=== PATIENT | female | born 1960 | race Hispanic/Latino ===

== ENCOUNTER 2018-05-19 18:56 | Observation (INO) | payer BC, SELFPAY ==
[2018-05-19 19:23] LABS: #Basophils 0.1 thou/uL (0.0-0.2); #Eosinphils 0.1 thou/uL (0.0-0.7); #Lymphocytes 2.1 thou/uL (1.20-3.40); #Monocytes 0.7 thou/uL (0.11-0.59); #Neutrophils 5.5 thou/uL (1.40-6.50); %Basophils 1.1 % (0.0-1.0); %Eosinophils 1.4 % (0.0-10.0); %Lymphocytes 24.6 % (21.0-51.0); %Monocytes 7.9 % (0.0-10.0); Hemoglobin 16.2 g/dL (12.0-16.0); Mean Corpuscular HGB CONC 33.7 g/dL (32.0-36.0); Mean Corpuscular Hemoglobin 31.1 pg (27.0-31.0); Mean Corpuscular Volume 92.4 fL (78.0-98.0); Mean Platelet Volume 9.2 fL (7.4-10.4); Platelet Count 251 thou/uL (130-400); RBC Distribution Width 11.8 % (11.5-14.5); Red Blood Cell (RBC) Count 5.21 mill/uL (4.20-5.40); White Blood Cell (WBC) Count 8.5 thou/uL (4.8-10.8)
[2018-05-19] MEDS ORDERED: Mag-Al 1200 mg/1200 mg/30 ML UDCUP ONE (19:32)
[2018-05-19] MEDS ORDERED: Lidocaine Viscous Sol 2% 15 ml UD Cup ONE (19:32)
[2018-05-19 19:37] LABS: ALT (SGPT) 21 U/L (8-55); AST (SGOT) 23 U/L (5-34); Albumin 4.7 g/dL (3.5-5.0); Alkaline Phosphatase 131 U/L (40-150); Anion Gap 14 mmol/L (10-20); BUN (Urea Nitrogen) 19 mg/dL (9.8-20.1); Bilirubin, Total 0.3 mg/dL (0.2-1.2); CK (CPK) 422 U/L (29-168); Calc. Creatinine Clearance 0 mL/min (70-130); Calcium 10.1 mg/dL (7.8-10.44); Carbon Dioxide 32 mmol/L (22-29); Chloride 95 mmol/L (98-107); Estimated GFR-MDRD 39; Glucose 382 mg/dL (70-105); Protein, Total 8.7 g/dL (6.0-8.3); Sodium 137 mmol/L (136-145)
[2018-05-19 19:41] LABS: Troponin I Less than 0.010 ng/mL (< 0.028)
[2018-05-19 19:52] LABS: CKMB 7.2 ng/mL (0-6.6)
--- NOTE | 2018-05-19 20:56 | RAD ---
PORTABLE CHEST: HISTORY: Chest pain. COMPARISON: 01/16/2017 FINDINGS: Heart size appears borderline in size, considering the portable technique. Postop sternotomy changes are present. There are atherosclerotic changes of the aorta. The lungs are clear of infiltrate. IMPRESSION: No active intrathoracic disease. POS: [facility]
[2018-05-19] MEDS ORDERED: Nitroglycerin 0.4 MG TAB (25 Tab Bottle) ONE (22:05)
--- NOTE | 2018-05-19 22:23 | PDOC.FPRHP ---
- History of Present Illness Chief Complaint: Abdominal burning History of Present Illness: Ms. Ramirez presents with CC of burning lower abdominal pain as well as epigastric burning that began around 1800 this evening after eating turkey jerky. History is difficult to obtain. She denies chest pain, SOB, N/V, diarrhea , rash. GI cocktail did not help much. Denies hx of acid reflux. Sensation different than the pain she had with her CABG. "Burning" still continues. ED Course: GI cocktail, nitro, ASA - Allergies/Adverse Reactions Allergies Allergy/AdvReac Type Severity Reaction Status Date / Time niacin Allergy Hives Verified 05/20/18 02:07 - Home Medications Medication Instructions Recorded Confirmed Type Aspirin 325 mg PO DAILY #0 tab 04/15/14 05/20/18 Rx Carvedilol [Coreg] 3.125 mg PO BID-WM #0 tab 04/15/14 05/20/18 Rx Levothyroxine Sodium 125 mcg PO DAILY #0 tablet 04/15/14 05/20/18 Rx Atorvastatin Calcium [Lipitor] 80 mg PO HS #0 tab 01/13/15 05/20/18 Rx Insulin Glargine,Hum.Rec.Anlog 16 units SQ QAM 09/05/16 05/20/18 History [Tokey Solostadam] Lisinopril [Zestril] 20 mg PO DAILY 09/05/16 05/20/18 History metFORMIN HCl 1,000 mg PO BID-WM 09/05/16 05/20/18 History pyridOXINE [Vitamin B 6] 100 mg PO DAILY 09/05/16 05/20/18 History - History PMHx: Afib s/p ablation, IDDM2, CKD2, CAD, HTN, hypothyroid, HFpEF PSHx: CABG, ablation for afib FHx: Dad- heart trouble, alcoholic Social: Reports some tobacco use in past, unable to state when she started or stopped or how much she smoked. Says she will "have a puff" every now and then while with smokers. Denies alcohol or drug use. - Review of Systems General: denies: fever/chills ENT: denies: nasal congestion, rhinorrhea Respiratory: denies: cough, congestion, shortness of breath Cardiovascular: denies: chest pain, palpitation, edema Gastrointestinal: reports: other (abdominal burning). denies: nausea, vomiting , diarrhea, abdominal pain Skin: reports: lesions (scabs on LLE). denies: rashes Musculoskeletal: denies: pain, swelling Neurological: denies: numbness, syncope - Vital signs BP: 150/90 HR: 64 RR: 15 Tmax: 97.5 Pox: 95% on RA Wt: 90.7 kg - Physical Exam Constitutional: NAD, awake, alert and oriented HEENT: normocephalic and atraumatic, PERRLA, normal nasal mucosa, oropharynx clear -HEENT: mucus membranes slightly dry -Chest: mild sternal TTP Heart: RRR, normal S1/S2, no murmurs/rubs/gallops, no edema Lungs: CTAB, no rales/rhonchi, no wheezing Abdomen: soft, non-tender, bowel sounds present, other Musculoskeletal: normal structure, normal tone Neurological: no focal deficit Skin: other (2 small healing scabs on LLE anteriorly. No abdominal rash.) Heme/Lymphatic: no unusual bruising or bleeding Psychiatric: normal mood and affect FMR H&P: Results - Labs Result Diagrams: 05/19/18 19:13 05/20/18 06:34 Lab results: WBC 8.5 thou/uL (4.8-10.8) 05/19/18 19:13 Hgb 16.2 g/dL (12.0-16.0) H 05/19/18 19:13 Hct 48.1 % (36.0-47.0) H 05/19/18 19:13 MCV 92.4 fL (78.0-98.0) 05/19/18 19:13 Plt Count 251 thou/uL (130-400) 05/19/18 19:13 Neutrophils % 65.0 % (42.0-75.0) 05/19/18 19:13 Sodium 137 mmol/L (136-145) 05/19/18 19:13 Potassium 4.0 mmol/L (3.5-5.1) 05/19/18 19:13 Chloride 95 mmol/L (98-107) L 05/19/18 19:13 Carbon Dioxide 32 mmol/L (22-29) H 05/19/18 19:13 BUN 19 mg/dL (9.8-20.1) 12/03/18 19:13 Creatinine 1.39 mg/dL (0.6-1.1) H 05/19/18 19:13 Glucose 382 mg/dL (70-105) H 05/19/18 19:13 Calcium 10.1 mg/dL (7.8-10.44) 05/19/18 19:13 Total Bilirubin 0.3 mg/dL (0.2-1.2) 05/19/18 19:13 AST 23 U/L (5-34) 05/19/18 19:13 ALT 21 U/L (8-55) 05/19/18 19:13 Alkaline Phosphatase 131 U/L (40-150) 05/19/18 19:13 Creatine Kinase 422 U/L (29-168) H 05/19/18 19:13 CK-MB (CK-2) 7.2 ng/mL (0-6.6) H* 05/19/18 19:13 Serum Total Protein 8.7 g/dL (6.0-8.3) H 05/19/18 19:13 Albumin 4.7 g/dL (3.5-5.0) 05/19/18 19:13 Lipase 34 U/L (8-78) 05/19/18 19:13 FMR H&P: A/P - Problem List (1) Atypical chest pain Current Visit: Yes Status: Acute Code(s): R07.89 - OTHER CHEST PAIN (2) DONY (acute kidney injury) Current Visit: Yes Status: Acute Code(s): N17.9 - ACUTE KIDNEY FAILURE, UNSPECIFIED (3) CKD (chronic kidney disease) Current Visit: Yes Status: Chronic Code(s): N18.9 - CHRONIC KIDNEY DISEASE, UNSPECIFIED (4) IDDM (insulin dependent diabetes mellitus) Current Visit: Yes Status: Acute Code(s): E11.9 - TYPE 2 DIABETES MELLITUS WITHOUT COMPLICATIONS; Z79.4 - DOUBLE END TRIMMER (CURRENT) USE OF INSULIN (5) CAD (coronary artery disease) Current Visit: Yes Status: Chronic Code(s): I25.10 - ATHSCL HEART DISEASE OF [place] CORONARY ARTERY W/O ANG PCTRS (6) Hx of CABG Current Visit: Yes Status: Chronic (7) Diastolic dysfunction Current Visit: Yes Status: Chronic Code(s): I51.9 - HEART DISEASE, UNSPECIFIED (8) Hyperlipemia Current Visit: No Status: Chronic Code(s): E78.5 - HYPERLIPIDEMIA, UNSPECIFIED (9) Hypertension Current Visit: No Status: Chronic Code(s): I10 - ESSENTIAL (PRIMARY) HYPERTENSION (10) Hypothyroidism Current Visit: No Status: Chronic Code(s): E03.9 - HYPOTHYROIDISM, UNSPECIFIED (11) S/P CABG x 4 Current Visit: No Status: Chronic (12) S/P ablation of atrial fibrillation Current Visit: No Status: Chronic Code(s): Z98.89 - OTHER SPECIFIED POSTPROCEDURAL STATES * DO NOT USE *; Z86.79 - PERSONAL HISTORY OF OTHER DISEASES OF THE CIRCULATORY SYSTEM - Plan 58 yo F with PMH CAD, CABG, HTN, IDDM2 presents with epigastric/abdominal burning and is admitted for observation. Atypical chest pain vs GERD vs gastritis - Heart score 4 with hx CAD w/ CABG - trop neg x2, will trend one more - CKMB 7.2->6.3. More likely 2/2 dehydration as below - CXR negative for acute process - EKG shows some t wave inversions, but unchanged compared to previous - lipase 34 - will start protonix - pending FLP, TSH - stress test in am DONY on CKD 2-3 2/2 dehydration - Cr 1.39 with GFR 39 here - patient does not report hx of kidney disease. However on chart review GFR has ranged 50-70s. - will give 500mL bolus. Volume repletion with caution since hx diastolic dysfunction IDDM2 - Pt unsure of how much insulin she takes - BG 382 on admission - will hold home metformin since DONY - accuchecks and SSI for now - A1c pending - will need med rec, she notes her regimen has changed recently HTN - continue home lisinopril - hold home carvedilol in preparation for stress in am CAD s/p CABG - continue home lipitor, ASA HFpEF - echo 09/11/16 showed EF 55-60%, grade 3/3 diastolic dysfunction, bi atrial enlargement - appears volume down at this time Possible hx Hypothyroid - Synthroid on previous med list. Patient did not report thyroid problem. - TSH pending - will get recent med rec Hx afib s/p ablation Diet: NPO @ midnight Code: FULL Dispo: Admit to telemetry for observation. Pending normal stress test in am, likely d/c home. FMR H&P: Upper Level - Pertinent history 58 y/o F w/ PMHx significant for CAD s/p CABG, HTN, and poorly controlled DM presents for evaluation of lower/chest epigastric abdominal burning pain which started earlier tonight while eating dinner (jerky) at home. Episodes intermittent lasting a few minutes at a time before spontaneously resolving. Notes pain is not assocaited w/ SOB, nausea, or diaphoresis. Reports pain is completely different than the cardiac pain she has had previously before her CABG. Given GI cocktail in ER which helped some. No worsening/improvement w/ exertion or rest. - Pertinent findings Trop - <0.01 CK-MB - 7.2 CK - 422 BUN - 19 Cr - 1.39 GFR - 39 EKG - T-wave inversions V4-V6 stable from 09/05/[address]-segment changes noted. NSR. CXR - NAD GEN: Resting in bed comfortably, NAD CARD: RRR, no mumur noted. Pain reproducible w/ palpation PULM: CTA-B/l, no wheezes, rales, or rhonci GI: Soft, non-ttp, BSx4. No rigidity, no rebound tenderness. Skin: No rashes noted on abdomen. - Plan Date/Time: 05/19/182221 I, B. Gage Perkins MD, have evaluated this patient and agree with findings/plan as outlined by media intern resident. Pertinent changes/additions are listed here. 58 y/o F w/: 1) Atypical Chest Pain (HEART Score = 4) vs Gastritis - Pt w/ significant cardiac hx concerning for possible atypical chest pain presentation in this older female patient. Initial cardiac work-up negative w/ exception of slightly elevated CK-MB which is likely related to elevated CK at 422 with approx. 5-7% of CK-MB being found in skeletal muscle. In the setting of baseline EKG and negative troponin, the rise in CK-MB is likely from underlying skeletal muscle injury. Will give small IVF bolus and continue to trend CK-MB and troponins. Patient w/ onset of sxs at 1830 and initial set of enzymes drawn at 1913. If this is cardiac in nature, would expect trops to show elevation within 2-3 hours of sxs onset. - Pt has not had any type of cardiac work-up since her CABG. Will plan to perform NM stress in the AM 2/2 significant risk factors if trops remain negative. - Check TSH, FLP, and A1c. Appears patient has uncontrolled DM as well and unsure of insulin regimen. Will place on moderate SSI w/ accuchecks to control until medication reconcilation can be performed. - Cont. w/ ASA started in the ER. Hold any beta blockers in the AM pending stress. Pt sees Dr. Alvarenga of cardiology and will plan to consult if indicated based on continued cardiac work-up - However, sxs more consistent with gastritis based on her symptomatology and grossly negative work-up so far - Will check lipase to r/o early pancreatitis and start on protonix - Other DDx include possible diabetic gastroparesis as well in setting of uncontrolled DM. Will consider trial of reglan as well if patient does not show any improvement w/ protonix. 2) Moderate dehydration w/ elevated CK and DONY on CKD3 - Pt w/ elevated CK and what appears to be DONY on CKD3 based on prior lab values. Will give 500 cc bolus of LR and repeat labs in the AM - Patient likely volume down 2/2 elevated BG and increased urinary lossses as patient does not know what her insulin regimen is. I doubt she is able to take this effectively at home on her own. If she does not already have home health, I believe that she would benefit form this to hopefully help prevent future hospitalizations. Will go ahead and place CM consult to get this started for her. 3) Other Chronic Conditions as per media intern note above Admit: Tele/Obs Code Status: Full Code PPx: SCD's Dispo: Likely <2 midnights pending clinical course Assessment and Plan discussed w/ Dr. Tremayne Delaney who is in agreement. Attending Addendum - Attending Addendum Date/Time: 05/20/18 [id number] I personally evaluated the patient and discussed the management with Drs. Linn and Maddie. I agree with the History, Examination, Assessment and Plan documented above with any addition or exceptions noted below.
[2018-05-19 23:18] LABS: Troponin I 0.012 ng/mL (< 0.028)
[2018-05-20 00:37] LABS: CKMB 6.3 ng/mL (0-6.6)
[2018-05-20] MEDS ORDERED: HumaLOG 300 UNITS/3 ML VIAL SC PRN (01:48)
[2018-05-20] MEDS ORDERED: Ondansetron ODT 4 MG TAB PO PRN (01:48)
[2018-05-20] MEDS ORDERED: Dextrose 5% in Water 1,000 ML IV PRN (01:48)
[2018-05-20] MEDS ORDERED: Nitroglycerin 0.4 MG TAB (25 Tab Bottle) PO PRN (01:48)
[2018-05-20] MEDS ORDERED: Dextrose 50% Abboject 50 ML SYRINGE SLOW IVP PRN (01:48)
[2018-05-20] MEDS ORDERED: Lactated Ringer's 500 ML IV SCH (01:48)
[2018-05-20] MEDS ORDERED: Acetaminophen 325 MG TAB PO PRN (01:48)
[2018-05-20 01:53] VITALS: BMI 40.6
[2018-05-20 02:34] LABS: CKMB 4.9 ng/mL (0-6.6); Troponin I Less than 0.010 ng/mL (< 0.028)
[2018-05-20] MEDS: Levothyroxine Sodium 125 MCG TAB PO SCH (06:00)
--- NOTE | 2018-05-20 06:30 | PDOC.FM ---
- Subjective Subjective: Pt states that the burning abdominal pain is resolved. She denies current chest pain, sob, or nausea/vomiting. She states that she has not taken her thyroid medication in a while due to insurance. She also states she is unsure her current medications. She reports [facility] on is her pharmacy. Pt states she has not seen Dr. Cannon in a while because no one had information on her insurance status. - Objective MAR Reviewed: Yes Vital Signs & Weight: Weight Weight 94.393 kg I&O: 05/18/18 05/19/18 05/20/18 06:59 06:59 06:59 Intake Total 610 Balance 610 Result Diagrams: 05/19/18 19:13 05/21/18 03:32 Phys Exam - Physical Examination Constitutional: NAD dry mucus membranes Neck: supple Good air movement, mild crackles at bilateral bases. Cardiovascular: RRR, no significant murmur Gastrointestinal: soft, non-tender, no distention, positive bowel sounds Musculoskeletal: no edema, pulses present Neurological: non-focal, moves all 4 limbs Psychiatric: normal affect, A&O x 3 Deviation from normal: Pt appears to have poor health literacy, will need lanny education Deviation from normal: appears to have old fungal rash on her abdomen, it is nontender -: No signs of vesicular lesions across abdomen. Dx/Plan (1) Acute kidney injury superimposed on CKD Code(s): N17.9 - ACUTE KIDNEY FAILURE, UNSPECIFIED; N18.9 - CHRONIC KIDNEY DISEASE, UNSPECIFIED Status: Acute (2) Heart failure with preserved ejection fraction Code(s): I50.30 - UNSPECIFIED DIASTOLIC (CONGESTIVE) HEART FAILURE Status: Acute (3) CAD (coronary artery disease) Code(s): I25.10 - ATHSCL HEART DISEASE OF [place] CORONARY ARTERY W/O ANG PCTRS Status: Chronic (4) Hx of CABG Status: Chronic (5) Hyperlipemia Code(s): E78.5 - HYPERLIPIDEMIA, UNSPECIFIED Status: Chronic (6) Hypertension Code(s): I10 - ESSENTIAL (PRIMARY) HYPERTENSION Status: Chronic (7) Type 2 diabetes mellitus, uncontrolled Code(s): E11.65 - TYPE 2 DIABETES MELLITUS WITH HYPERGLYCEMIA Status: Acute - Plan Plan: This is a 58 yo female with a PMH of CAD, CABG, HTN, IDDM2 Atypical chest pain vs. GERD -Heart score of 4 with hx of CAD w/CABG -Troponins neg x3 -CKMB 7.2--> trending down -CXR negative for acute process -EKG shows some t wave inversions, unchanged from previous -Pt. is receiving protonix -Stress is scheduled for this morning DONY on CKD 2/2 dehydration -Trending Cr -Baseline GFR appears in the 70s over the past 2-3 years Uncontrolled type diabetes -BG 382 on admission -A1c is 11 -Accuchecks and SSI HTN -Continue lisinopril -Hold home carvedilol in preparation for stress in am CAD s/p CABG -Continue home lipitor, ASA HFpEF -Echo in 09/11/16 showed EF of 55-60%, grade 3 diastolic dysfunction Hypothyroidism -TSH is 55.7 Afib s/p ablation HLD -Continue home Lipitor Health Illiteracy -Pt needs to follow up with either Dr. Cannon or us to establish care and begin proper medical management of her current conditions
[2018-05-20 07:29] LABS: Anion Gap 12 mmol/L (10-20); BUN (Urea Nitrogen) 21 mg/dL (9.8-20.1); CK (CPK) 253 U/L (29-168); Calc. Creatinine Clearance 90 mL/min (70-130); Calcium 9.2 mg/dL (7.8-10.44); Carbon Dioxide 29 mmol/L (22-29); Cardiac Risk 8.2 (Less than 4.5); Chloride 100 mmol/L (98-107); Cholesterol 371 mg/dl (< 200 Desired); Estimated GFR-MDRD 56; Glucose 267 mg/dL (70-105); HDL Cholesterol 45 mg/dL (>60 Neg Risk); LDL Cholesterol, Calculated 273 mg/dL; Potassium 3.9 mmol/L (3.5-5.1); Sodium 137 mmol/L (136-145); Triglycerides 264 mg/dL (Less than 150)
[2018-05-20 07:31] LABS: CKMB 4.2 ng/mL (0-6.6)
[2018-05-20] MEDS: metFORMIN 500 MG TAB PO SCH ×2 (08:00→16:55)
[2018-05-20] MEDS ORDERED: INSULIN GLARGINE HUM REC ANLOG 16 UNIT SQ SCH (09:00)
[2018-05-20] MEDS: Lisinopril 20 MG TAB PO SCH (09:03)
[2018-05-20] MEDS: Aspirin 325 MG TAB PO SCH (09:03)
[2018-05-20] MEDS: Pantoprazole 40 MG GRANULES PACKET PO SCH (09:03)
[2018-05-20] MEDS ORDERED: ADENOSINE 60 MG/20 ML VIAL ONE (11:01)
[2018-05-20] MEDS: Insulin Glargine 16 UNITS in Pre-Filled Syringe 1 EACH SC SCH (16:55)
[2018-05-20] MEDS ORDERED: Atorvastatin Calcium 40 MG TAB PO SCH (21:00)
[2018-05-21 04:26] LABS: Anion Gap 12 mmol/L (10-20); BUN (Urea Nitrogen) 24 mg/dL (9.8-20.1); Calc. Creatinine Clearance 90 mL/min (70-130); Calcium 9.4 mg/dL (7.8-10.44); Carbon Dioxide 27 mmol/L (22-29); Chloride 101 mmol/L (98-107); Estimated GFR-MDRD 56; Glucose 190 mg/dL (70-105); Potassium 3.8 mmol/L (3.5-5.1); Sodium 136 mmol/L (136-145)
[2018-05-21] MEDS: Levothyroxine Sodium 125 MCG TAB PO SCH (04:54)
--- NOTE | 2018-05-21 05:30 | PDOC.FM ---
- Subjective Subjective: Pt. denies abdominal burning, chest pain, shortness of breath, dizziness, or lightheadedness with ambulation. She states she did well overnight. - Objective MAR Reviewed: Yes Vital Signs & Weight: Vital Signs (12 hours) Temp Pulse Resp BP Pulse Ox 05/21/18 04:49 97.5 F L 59 L 14 118/56 L 97 05/20/18 23:20 97.6 F 60 12 112/58 L 95 05/20/18 19:55 97.1 F L 59 L 18 140/73 93 L Weight Admit Weight 94.393 kg Weight 95.663 kg I&O: 05/19/18 05/20/18 05/21/18 06:59 06:59 06:59 Intake Total 610 1440 Balance 610 1440 Result Diagrams: 05/19/18 19:13 05/21/18 03:32 <José Pritchard - Last Filed: 05/21/18 06:55> - Objective Vital Signs & Weight: Vital Signs (12 hours) Temp Pulse Resp BP Pulse Ox 05/21/18 04:49 97.5 F L 59 L 14 118/56 L 97 05/20/18 23:20 97.6 F 60 12 112/58 L 95 Weight Admit Weight 94.393 kg Weight 95.663 kg I&O: 05/20/18 05/21/18 05/22/18 06:59 06:59 06:59 Intake Total 610 1440 Balance 610 1440 Result Diagrams: 05/19/18 19:13 05/21/18 03:32 <Cory Bird - Last Filed: 05/21/18 09:36> Phys Exam - Physical Examination Constitutional: NAD HEENT: moist MMs Neck: supple Respiratory: no wheezing, clear to auscultation bilateral Cardiovascular: RRR, no significant murmur, no rub Gastrointestinal: soft, non-tender, no distention, positive bowel sounds Musculoskeletal: no edema, pulses present Neurological: moves all 4 limbs Psychiatric: normal affect, A&O x 3 Skin: cap refill <2 seconds <José Pritchard - Last Filed: 05/21/18 06:55> Dx/Plan (1) Acute kidney injury superimposed on CKD Code(s): N17.9 - ACUTE KIDNEY FAILURE, UNSPECIFIED; N18.9 - CHRONIC KIDNEY DISEASE, UNSPECIFIED Status: Acute (2) Heart failure with preserved ejection fraction Code(s): I50.30 - UNSPECIFIED DIASTOLIC (CONGESTIVE) HEART FAILURE Status: Acute (3) CAD (coronary artery disease) Code(s): I25.10 - ATHSCL HEART DISEASE OF [place] CORONARY ARTERY W/O ANG PCTRS Status: Chronic (4) Hx of CABG Status: Chronic (5) Hyperlipemia Code(s): E78.5 - HYPERLIPIDEMIA, UNSPECIFIED Status: Chronic (6) Hypertension Code(s): I10 - ESSENTIAL (PRIMARY) HYPERTENSION Status: Chronic (7) Type 2 diabetes mellitus, uncontrolled Code(s): E11.65 - TYPE 2 DIABETES MELLITUS WITH HYPERGLYCEMIA Status: Acute - Plan Plan: This is a 58 yo female with a PMH of CAD, CABG, HTN, IDDM2 Atypical chest pain vs. GERD -Heart score of 4 with hx of CAD w/CABG -Troponins neg x3 -CKMB 7.2--> trending down -CXR negative for acute process -EKG shows some t wave inversions, unchanged from previous -Pt. is receiving protonix -Pt underwent active portion of stress test yesterday and will be undergoing resting portion today -We will adjust our management of pt based on the results of this test DONY on CKD 2/2 dehydration -Trending Cr -Baseline GFR appears in the 70s over the past 2-3 years Uncontrolled type diabetes -BG 382 on admission -A1c is 11 -Accuchecks and SSI HTN -Continue lisinopril -Hold home carvedilol in preparation for stress in am CAD s/p CABG -Continue home lipitor, ASA HFpEF -Echo in 09/11/16 showed EF of 55-60%, grade 3 diastolic dysfunction Hypothyroidism -TSH is 55.7 Afib s/p ablation HLD -Continue home Lipitor Health Illiteracy -Pt needs to follow up with either Dr. Cannon or us to establish care and begin proper medical management of her current conditions <José Pritchard - Last Filed: 05/21/18 06:55> Attending Addendum - Attending Addendum Date/Time: 05/21/18 2086 I personally evaluated the patient and discussed the management with Dr. Pritchard I agree with the History, Examination, Assessment and Plan documented above with any addition or exceptions noted below. Pt has not had any episodes of CP since admission. She will complete the second portion of her stress test this morning. Likely discharge pending normal results. We will f/u her up in our clinic for chronic disease management as she has not been taking the appropriate medications for her medical conditions. Extensive counseling done in regards to detention consequences of uncontrolled IDDM, HTN, HLD. <Cory Bird - Last Filed: 05/21/18 09:36>
[2018-05-21] MEDS: Aspirin 325 MG TAB PO SCH (09:13)
[2018-05-21] MEDS: metFORMIN 500 MG TAB PO SCH (09:13)
[2018-05-21] MEDS: Insulin Glargine 16 UNITS in Pre-Filled Syringe 1 EACH SC SCH (09:14)
[2018-05-21] MEDS: Pantoprazole 40 MG GRANULES PACKET PO SCH (09:14)
[2018-05-21] MEDS: Lisinopril 20 MG TAB PO SCH (09:14)
--- NOTE | 2018-05-21 09:48 | NM ---
NUCLEAR MEDICINE CARDIAC PERFUSION STUDY WITH EJECTION FRACTION: History: 58-year-old female with chest pain. History of coronary artery disease, status post CABG. Technique: A two-day Nuclear Medicine cardiac perfusion examination was performed. Rest images were obtained usi ng 33 mCi Technetium 99M Sestamibi. Stress images were obtained using 33 mCi Technetium 99M Sestamibi and Adenosine. FINDINGS: Tomographic images show no fixed or reversible perfusion defects. Gated images show normal wall motio n with an ejection fraction of 51%. EDV is 87 ml. LHR is 0.4. TID is 1.3. IMPRESSION: No evidence of ischemia. POS: [facility]
[2018-05-21 11:52] VITALS: BP 136/73; TEMP 97.8
--- NOTE | 2018-05-23 15:57 | DIS ---
DATE OF ADMISSION: 05/20/2018 DATE OF DISCHARGE: 05/21/2018 RESIDENT: José Pritchard DO. ADMITTING ATTENDING: Tremayne Delaney MD. DISCHARGE ATTENDING: Cory Bird MD. CONSULTS: None. PROCEDURES PERFORMED: 1. Chest x-ray, 1-view, showing no intrathoracic disease. 2. Nuclear medicine stress test shows no evidence of ischemia. PRIMARY DIAGNOSES: Atypical chest pain, likely due to gastritis versus gastroesophageal reflux disease, as well acute kidney injury on chronic kidney disease, stage 2 to 3. SECONDARY DIAGNOSES: 1. Type 2 diabetes. 2. . 3. Coronary artery disease, status post coronary artery bypass grafting. 4. Heart failure with preserved ejection fraction, . 5. History of hypothyroidism. 6. Atrial fibrillation, status post ablation. DISCHARGE MEDICATIONS: 1. Aspirin 325 mg p.o. daily. 2. Atorvastatin 80 mg p.o. nightly. 3. Carvedilol 3.125 mg p.o. b.i.d. 4. Insulin 16 units q.a.m. 5. Levothyroxine 125 mcg p.o. daily. 6. Lisinopril 20 p.o. daily. 7. Metformin 1000 mg p.o. b.i.d. 8. 100 mg p.o. daily. DISCONTINUED MEDICATIONS: None. BRIEF HISTORY OF PRESENT ILLNESS/HOSPITAL COURSE: This is a 58-year-old female with past medical history as listed above, who presented with chief complaint of burning in her abdomen as well as epigastric burning prior to admission. The patient's history is limited due to the patient's . The patient was admitted. Troponins were negative x3. Chest x-ray as above. EKG showed some T-wave inversion, but unchanged compared to previous. The patient had stress test showing no reversible or fixed defects and diagnosis musculoskeletal versus gastrointestinal at that point. DISPOSITION: Stable. DISCHARGE INSTRUCTIONS: 1. Location: Home. 2. Diet: Heart healthy and diabetic. 3. Activities: As tolerated. 4. Followup: Follow up with primary care physician in 1 week. Job ID: [id number]
--- NOTE | 2018-05-24 12:46 | EKG ---
Test Reason : ER INDICATION Blood Pressure : / mmHG Vent. Rate : 070 BPM Atrial Rate : 070 BPM P-R Int : 120 ms QRS Dur : 094 ms QT Int : 390 ms P-R-T Axes : 039 007 150 degrees QTc Int : 421 ms Normal sinus rhythm Lateral T wave inversions seen on EKG from 09/05/2016, no acute changes Confirmed by RADHA HOFFMAN ([id number]), news copy editor AVNI PUENTE ([id number]) on 05/24/2018 12:45:47 PM Referred By: Confirmed By:RADHA HOFFMAN
== END 2018-05-21 13:40 | disposition home or self-care (01) ==
LOC: ERS 18:56 → 2SW 05-20 01:28
PROVIDERS: ADMIT Family Medicine; ATTEND Family Medicine
DX: R07.89 Other chest pain (principal); I13.0 Hypertensive heart and chronic kidney disease with heart failure and stage 1 through stage 4 chronic kidney disease, or unspecified chronic kidney disease; E11.22 Type 2 diabetes mellitus with diabetic chronic kidney disease; N18.3 Chronic kidney disease, stage 3 (moderate); I50.30 Unspecified diastolic (congestive) heart failure; N17.9 Acute kidney failure, unspecified; E03.9 Hypothyroidism, unspecified; I25.10 Atherosclerotic heart disease of native coronary artery without angina pectoris; I48.91 Unspecified atrial fibrillation; F17.200 Nicotine dependence, unspecified, uncomplicated; E86.0 Dehydration; Z79.82 Long term (current) use of aspirin; Z79.4 Long term (current) use of insulin; Z79.899 Other long term (current) drug therapy; Z88.8 Allergy status to other drugs, medicaments and biological substances; Z95.1 Presence of aortocoronary bypass graft
CPT/HCPCS: 36415; 36416; 71045; 78452; 80048; 80053; 80061; 82550; 82553; 83036; 83690; 84443; 84484; 85025; 93005; 93017; A4353; A9500; G0378; J0153; J7120

== ENCOUNTER 2018-08-08 17:39 | Emergency (ER) | payer SELFPAY ==
--- NOTE | 2018-08-08 19:12 | RAD ---
THREE VIEWS RIGHT ANKLE: 08/08/18 HISTORY: Fall. Pain. Injury. COMPARISON: None. FINDINGS: Joint spaces are preserved. Ankle mortise is intact. No fracture. IMPRESSION: No fracture. POS: [facility]
== END 2018-08-08 19:02 | disposition home or self-care (01) ==
LOC: ERS 17:39
DX: S93.401A Sprain of unspecified ligament of right ankle, initial encounter (principal); E03.9 Hypothyroidism, unspecified; I48.91 Unspecified atrial fibrillation; E11.9 Type 2 diabetes mellitus without complications; Z79.4 Long term (current) use of insulin; E78.5 Hyperlipidemia, unspecified; I10 Essential (primary) hypertension; F41.9 Anxiety disorder, unspecified; Z87.891 Personal history of nicotine dependence; Z79.899 Other long term (current) drug therapy; W19.XXXA Unspecified fall, initial encounter

== ENCOUNTER 2018-08-20 12:50 | Emergency (ER) | payer SELFPAY | END 2018-08-20 14:36 | disposition home or self-care (01) | LOC: ERS 12:50 | DX: T46.4X1A Poisoning by angiotensin-converting-enzyme inhibitors, accidental (unintentional), initial encounter (principal); I48.91 Unspecified atrial fibrillation; E11.9 Type 2 diabetes mellitus without complications; E78.5 Hyperlipidemia, unspecified; I10 Essential (primary) hypertension; F41.9 Anxiety disorder, unspecified; Z87.891 Personal history of nicotine dependence; Z79.899 Other long term (current) drug therapy; Z79.891 Long term (current) use of opiate analgesic | CPT/HCPCS: 99283 ==

== ENCOUNTER 2018-08-27 17:21 | Observation (INO) | payer OTHER ==
[2018-08-27 17:55] LABS: #Basophils 0.1 thou/uL (0.0-0.2); #Eosinphils 0.2 thou/uL (0.0-0.7); #Lymphocytes 2.5 thou/uL (1.20-3.40); #Monocytes 0.9 thou/uL (0.11-0.59); #Neutrophils 6.6 thou/uL (1.40-6.50); %Basophils 0.5 % (0.0-1.0); %Eosinophils 2.3 % (0.0-10.0); %Lymphocytes 24.3 % (21.0-51.0); %Monocytes 8.4 % (0.0-10.0); %Neutrophils 64.5 % (42.0-75.0); Hemoglobin 13.9 g/dL (12.0-16.0); Mean Corpuscular HGB CONC 32.4 g/dL (32.0-36.0); Mean Corpuscular Hemoglobin 30.1 pg (27.0-31.0); Mean Corpuscular Volume 93.1 fL (78.0-98.0); Mean Platelet Volume 9.2 fL (7.4-10.4); Platelet Count 253 thou/uL (130-400); RBC Distribution Width 11.1 % (11.5-14.5); Red Blood Cell (RBC) Count 4.62 mill/uL (4.20-5.40); White Blood Cell (WBC) Count 10.3 thou/uL (4.8-10.8)
[2018-08-27 18:01] LABS: PTT 24.7 SEC (22.9-36.1)
[2018-08-27 18:02] LABS: Prothrombin Time 13.2 SEC (12.0-14.7)
[2018-08-27 18:14] LABS: Bilirubin Small (Negative); Blood, Urine Trace (Negative); Clarity CLOUDY (Clear); Glucose, Urine (Dipstick) Negative (Negative); Leukocyte Negative (Negative); Nitrite Negative (Negative); Protein, Urine (Dipstick) Negative (Neg-Trace); Specific Gravity, Urine 1.026 (1.002-1.036)
[2018-08-27 18:15] LABS: ALT (SGPT) 28 U/L (8-55); AST (SGOT) 24 U/L (5-34); Alkaline Phosphatase 131 U/L (40-150); Anion Gap 15 mmol/L (10-20); BUN (Urea Nitrogen) 26 mg/dL (9.8-20.1); Bilirubin, Total 0.3 mg/dL (0.2-1.2); Calc. Creatinine Clearance 0 mL/min (70-130); Calcium 9.8 mg/dL (7.8-10.44); Carbon Dioxide 29 mmol/L (22-29); Chloride 100 mmol/L (98-107); Estimated GFR-MDRD 65; Globulin 3.1 g/dL (2.4-3.5); Glucose 190 mg/dL (70-105); Potassium 3.9 mmol/L (3.5-5.1); Protein, Total 7.1 g/dL (6.0-8.3); Sodium 140 mmol/L (136-145)
[2018-08-27 18:15] LABS: Bacteria/HPF 1+ HPF (None Seen); Hyaline Casts/LPF 7-10 HYALINE CAST LPF (0-3 Hyaline); Pathc Cast-AUWi Flag 2.04 (0-2.49); RBC/HPF 0-3 HPF (0-3)
[2018-08-27 18:17] LABS: Acetaminophen Less than 6.0 mcg/mL (10.0-30.0); Alcohol Less than 10 mg/dL (Less than 10); Salicylate Less than 8.0 mg/dL (15.0-30.0)
[2018-08-27 18:24] LABS: Amphetamine Not Detected (NotDetected); Barbiturates Screen Not Detected (NotDetected); Benzodiazepine Screen Not Detected (NotDetected); Cocaine Metabolite Screen Not Detected (NotDetected); Medtox Control Line Valid? VALID (VALID); Medtox Reader # READER 1; Methadone Not Detected (NotDetected); Methamphetamine Not Detected (NotDetected); Opiate Screen Not Detected (NotDetected); Oxycodone Screen Not Detected (NotDetected); Phencyclidine (PCP) Not Detected (NotDetected); THC/Cannabinoid Screen Not Detected (NotDetected); Tricyclic Screen Not Detected (NotDetected)
[2018-08-27] MEDS ORDERED: Aspirin Chewable 81 MG TAB ONE (19:09)
--- NOTE | 2018-08-27 19:48 | CT ---
CT OF BRAIN PERFORMED WITHOUT CONTRAST ENHANCEMENT: 08/27/18 HISTORY: Stroke alert, slurred speech. COMPARISON: 07/18/14 study. Ventricular and cisternal system is within normal limits. There is no signs of intracerebral hemorrha ge or extra-axial fluid collections. Mastoid air cells and visualized sinuses are clear. IMPRESSION: 1. No acute intracranial abnormalities. 2. Findings telephoned to Dr. Jackman at 1741 hours. POS: [facility]
[2018-08-27 19:56] LABS: Hemoglobin A1c 8.2 % (4.0-6.0)
[2018-08-27 20:26] LABS: Troponin I 0.011 ng/mL (< 0.028)
[2018-08-27 20:29] LABS: HIV (1/2) Antibody/Antigen Non-Reactive (NonReactive); HIV 1/2 INDEX 0.14 S/CO (<1.00); Syphilis Antibody Nonreactive (Nonreactive); Syphilis Antibody Index 0.04 S/CO (<1.00 Non-Reactive); Thyroid Stimulating Hormone 0.6933 uIU/mL (0.35-4.94)
[2018-08-27 20:40] LABS: Vitamin B12 Greater than 2000 pg/mL (211-911)
[2018-08-27] MEDS ORDERED: Acetaminophen 325 MG TAB PO PRN (22:27)
[2018-08-27] MEDS ORDERED: Ondansetron PF 4 MG/2 ML Vial IVP PRN (22:27)
[2018-08-27] MEDS ORDERED: Ondansetron ODT 4 MG TAB PO PRN (22:27)
--- NOTE | 2018-08-27 22:49 | PDOC.FPRHP ---
- History of Present Illness Chief Complaint: AMS History of Present Illness: 58 yo female with history of uncontrolled HTN, DM, CAD, HLD, depression and hypothyroidism presents for AMS. Patient was recently seen by PCP 2 wks ago. Noted to have uncontrolled chronic conditions. Over this time the patient has confusion, falls, and memory loss. Patient not able to provide history. History provided by family members. Patient is currently under evaluation by PCP and cardiology. This morning there was more confusion, gait is unstable, and speech is slurred. Currently not oriented. Last normal state was yesterday. Family members comment she "just looks out of it." Patient's declined has been progressive over the past 5 months. Previously able to work. Not able to function or work over the past 2 wks. No longer able to cook, clean, bill paying , drive a car, etc. 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 One concern the family raised was all related to insurance change and at that time she was not taking medications. Patient complains of bilateral leg weakness. Code status: Full ED Course: ASA 325mg - Allergies/Adverse Reactions Allergies Allergy/AdvReac Type Severity Reaction Status Date / Time niacin Allergy Hives Verified 05/20/18 02:07 - Home Medications Medication Instructions Recorded Confirmed Type Aspirin 325 mg PO DAILY #0 tab 04/15/14 05/20/18 Rx Carvedilol [Coreg] 3.125 mg PO BID-WM #0 tab 04/15/14 08/28/18 Rx Levothyroxine Sodium 125 mcg PO DAILY #0 tablet 04/15/14 08/28/18 Rx Atorvastatin Calcium [Lipitor] 80 mg PO HS #0 tab 01/13/15 08/28/18 Rx Insulin Glargine,Hum.Rec.Anlog 16 units SQ QAM 09/05/16 05/20/18 History [Tokey Solostadam] Lisinopril [Zestril] 20 mg PO DAILY 09/05/16 08/28/18 History pyridOXINE [Vitamin B 6] 100 mg PO DAILY 09/05/16 05/20/18 History DULoxetine [Cymbalta] 60 mg PO DAILY 08/28/18 08/28/18 History - History PMHx: CAD s/p CABG x3, HTN, HLD, MDD, Hypothyroidism PSHx: CABG x3, hysterectomy FHx: Mother: DM. Father: HLD, HTN, CAD. No history of dementia. Social: Tobacco use (social). Denies alcohol or drug use. PCP: Kassandra - Review of Systems General: reports: fatigue, other (headache). denies: fever/chills, weight/ appetite/sleep changes, night sweats Eyes: denies: eye pain, vision changes ENT: denies: nasal congestion, rhinorrhea Respiratory: denies: cough, congestion, shortness of breath Cardiovascular: denies: chest pain, palpitation, edema Gastrointestinal: denies: nausea, vomiting, diarrhea, constipation Genitourinary: denies: dysuria Skin: reports: rashes (to bilateral feet). denies: lesions Musculoskeletal: reports: pain (L>R LE), tenderness (LLE). denies: stiffness Neurological: reports: weakness (lower extremities). denies: numbness, syncope , seizure Psychological: reports: other (denies hallucinations/ delusions) - Vital signs BP: 163/81 HR: 67 RR: 16 Tmax: 98.2F Pox: 96% on RA Wt: 88.68kg - Physical Exam Constitutional: NAD, awake, alert and oriented (person and location, not date), well developed HEENT: normocephalic and atraumatic, PERRLA, EOMI, grossly normal vision, grossly normal hearing, normal nasal mucosa, MMM Neck: supple, FROM, trachea midline, no thyromegaly, no bruits Chest: no-tender to palpation, no lesions Heart: RRR, normal S1/S2, no murmurs/rubs/gallops, pulses present, no edema Lungs: CTAB, no respiratory distress, good air movement, no rales/rhonchi, no wheezing, no retractions Musculoskeletal: normal structure, normal tone, ROM grossly normal -Musculoskeletal: TTP of left thigh/hip Neurological: CN II-XII intact, normal sensation -Neurological: 3/5 strength bilateral LE but concern this is patients participation. Patient able to ambulate. No clonus. Skin: good turgor, capillary refill <2 seconds, no jaundice -Skin: erythema, papular, lintiginous rash on bilateral feet -Psychiatric: flat affect, reports poor recent memory FMR H&P: Results - Labs Result Diagrams: 08/28/18 05:02 08/28/18 05:02 Lab results: WBC 10.3 thou/uL (4.8-10.8) 08/27/18 12:28 Hgb 13.9 g/dL (12.0-16.0) 08/27/18 12:28 Hct 43.1 % (36.0-47.0) 08/27/18 12:28 MCV 93.1 fL (78.0-98.0) 08/27/18 12:28 Plt Count 253 thou/uL (130-400) 08/27/18 12:28 Neutrophils % 64.5 % (42.0-75.0) 08/27/18 12:28 ESR Westergren 31 mm/hr (Less than 30) 08/27/18 19:39 Sodium 140 mmol/L (136-145) 08/27/18 12:28 Potassium 3.9 mmol/L (3.5-5.1) 08/27/18 12:28 Chloride 100 mmol/L (98-107) 08/27/18 12:28 Carbon Dioxide 29 mmol/L (22-29) 08/27/18 12:28 BUN 26 mg/dL (9.8-20.1) H 08/27/18 12:28 Creatinine 0.89 mg/dL (0.6-1.1) 08/27/18 12:28 Glucose 190 mg/dL (70-105) H 08/27/18 12:28 Calcium 9.8 mg/dL (7.8-10.44) 08/27/18 12:28 Total Bilirubin 0.3 mg/dL (0.2-1.2) 08/27/18 12:28 AST 24 U/L (5-34) 08/27/18 12:28 ALT 28 U/L (8-55) 08/27/18 12:28 Alkaline Phosphatase 131 U/L (40-150) 08/27/18 12:28 Creatine Kinase 133 U/L (29-168) 08/27/18 19:39 Serum Total Protein 7.1 g/dL (6.0-8.3) 08/27/18 12:28 Albumin 4.0 g/dL (3.5-5.0) 08/27/18 12:28 Urine Ketones Negative mg/dL (Negative) 08/27/18 17:58 Urine Blood Trace (Negative) H 08/27/18 17:58 Urine Nitrite Negative (Negative) 08/27/18 17:58 Ur Leukocyte Esterase Negative (Negative) 08/27/18 17:58 Urine RBC 0-3 HPF (0-3) 08/27/18 17:58 Urine WBC 4-6 HPF (0-3) H 08/27/18 17:58 Ur Squamous Epith Cells 11-20 HPF (0-3) H 08/27/18 17:58 Urine Bacteria 1+ HPF (None Seen) H 08/27/18 17:58 - Radiology Interpretation CT scan - head Status: report reviewed by me (no acute process) FMR H&P: A/P - Problem List (1) Type 2 diabetes mellitus, uncontrolled Status: Acute Code(s): E11.65 - TYPE 2 DIABETES MELLITUS WITH HYPERGLYCEMIA Qualifiers: Glycemic state: with hyperglycemia Qualified Code(s): E11.65 - Type 2 diabetes mellitus with hyperglycemia (2) Weakness Status: Acute Code(s): R53.1 - WEAKNESS (3) CAD (coronary artery disease) Status: Chronic Code(s): I25.10 - ATHSCL HEART DISEASE OF [place] CORONARY ARTERY W/O ANG PCTRS Qualifiers: Coronary Disease-Associated Artery/Lesion type: [place] artery [place] vs. transplanted heart: [place] heart Associated angina: angina presence unspecified Qualified Code(s): I25.10 - Atherosclerotic heart disease of [place] coronary artery without angina pectoris (4) CKD (chronic kidney disease) Status: Chronic Code(s): N18.9 - CHRONIC KIDNEY DISEASE, UNSPECIFIED (5) Diastolic dysfunction Status: Chronic Code(s): I51.9 - HEART DISEASE, UNSPECIFIED (6) Hx of CABG Status: Chronic (7) Hyperlipemia Status: Chronic Code(s): E78.5 - HYPERLIPIDEMIA, UNSPECIFIED Qualifiers: Hyperlipidemia type: unspecified Qualified Code(s): E78.5 - Hyperlipidemia , unspecified (8) Hypertension Status: Chronic Code(s): I10 - ESSENTIAL (PRIMARY) HYPERTENSION Qualifiers: Hypertension type: essential hypertension Qualified Code(s): I10 - Essential (primary) hypertension (9) Hypothyroidism Status: Chronic Code(s): E03.9 - HYPOTHYROIDISM, UNSPECIFIED Qualifiers: Hypothyroidism type: unspecified Qualified Code(s): E03.9 - Hypothyroidism , unspecified (10) S/P CABG x 4 Status: Chronic (11) S/P ablation of atrial fibrillation Status: Chronic Code(s): Z98.89 - OTHER SPECIFIED POSTPROCEDURAL STATES * DO NOT USE *; Z86.79 - PERSONAL HISTORY OF OTHER DISEASES OF THE CIRCULATORY SYSTEM (12) Altered mental status Status: Acute Code(s): R41.82 - ALTERED MENTAL STATUS, UNSPECIFIED - Plan AMS 2/2 vascular dementia vs hypothyroidism vs MDD vs conversion disorder Patient w/ history of depression and hx of memory deficits and hypothyroidism not taking medications as directed. No fam hx of - TSH obtained: 0.69, ESR WNL - CT showing no acute process - Blood and urine cx pending - MRI ordered for tomorrow - B12 and folate obtained - B12 > [id number] and folate wnl - HIV/RPR neg - PT/OT to eval and treat Hypothyroidism - aware, will continue home medication - TSH WNL MDD - Patient recently started on duloxetine about 2weeks ago - Flat affect on exam, currently no SI/HI, hallucinations of delusions DM2 - poorly controlled according to family - Will obtain A1C - 8.2 - mild SS Hx of Atrial Fibrillation - aware, continue home meds; pt RRR on exam DISPO: admit to stroke obs DVT ppx: lovenox Case discussed with Dr. Tanner FMR H&P: [place] - Pertinent history 58F with history of uncontrolled HTN, DM, CAD, HLD, depression and hypothyroidism seen for altered mentation on going for 5 month now. She more recently in last 3 week is having more falls due to peripheral weakness, short term memory loss, confusion and slurred speech. She is now only AOx2 when previously she was full. She is unable to participate in her job and has stopped working. 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 Incidentally complains about bilateral leg pain that is localized to hamstring, not associated to any trauma and happened insidiously. Vitals BP 158/60, Pulse 65, Resp 16, Temp 98.2, 96% on RA Gen: Poor eye contact, AO x2 HEENT: Hearing and vision grossly intact. Normocephalic. Moist mucosal membrane Resp: CTA bilat, unlabored CV: RRR with no apparent m/g/r Abd: Normoactive bowel, soft, notender Ext: No obvious deformity in LE, no erythema, redness. Unable to perform straight leg rise but noted to walk normally prior to ER admission. Pain on palpation of hamstring. Neuro: CN II-XII grossly intact. Tone appropriate. Peripheral reflex present. Sensation grossly intact. Strength 3/5 in LE, 4/5 in UE. Psych: Flat affect, AO x2, not to time. Disinterested, depressed appearing. A/P 1. AMS - No clear etiology at this time. CT scan and initial chemistry, cbc were negative. - Plan to obtain TSH to rule endorcrine cause - Review home medication - B12/Folate to rule out metabolic causes - ESR to rule out inflammatory/rheumatologic cause - HIV/RPR to rule out infection. Await urine culture - MRI for [employer] issues - UDS for iatrogenic causes 2. Peripheral neuropathy - Has known DM2 - Pain on palpation of hamstring would suggest more MSK - Will obtain CK to rule out rhabdo/inflammatory rheum disorders - Consider gabapentin if it continues, but does not appear to be acute issue at this time 3. Depression - Continue home duloxetine 4. Hypothyrodism - Continue home levothyroxine 5. HTN - Continue home carvedilol and lisinopril 6. HLD - Continue home atorvastatin 7. DM2 - SSI, stop metformin due to need for imaging 8. HF with preserved EF - Diastolic dysfunction on Echocardiogram 2 year prior. - Stable at this time, will continue home med - Plan Date/Time: 08/27/18 [id number] I, [Ari Caballero], have evaluated this patient and agree with findings/plan as outlined by corporate strategy intern resident. Pertinent changes/additions are listed here. Addendum - Attending - Attending Attestation Date/Time: 08/27/18 5246 I personally evaluated the patient and discussed the management with Dr. Benjamin and Dr. Caballero I agree with the History, Examination, Assessment and Plan documented above with any addition or exceptions noted below. 58 yo female with multiple medical conditions presents with AMS per family. Family provided history. Stating patient is very altered, not herself, does not respond, has not been herself, and appears to have short term memory loss. When discussing with patient does not appear to have these problems. Slow to respond to questioning but does not seem to have a motor or functional problem. Concern this is part of a conversion disorder with depression. Will obs overnight and rule out organic causes. Will need outpatient psych. Denies SI/HI/ hallucinations. ABrayMD
[2018-08-27] MEDS ORDERED: HumaLOG 300 UNITS/3 ML VIAL SC PRN (22:58)
[2018-08-27] MEDS ORDERED: Dextrose 5% in Water 1,000 ML IV PRN (22:58)
[2018-08-27] MEDS ORDERED: Dextrose 50% Abboject 50 ML SYRINGE SLOW IVP PRN (22:58)
[2018-08-28 00:42] LABS: Troponin I Less than 0.010 ng/mL (< 0.028)
[2018-08-28 00:45] VITALS: BMI 33.5
[2018-08-28 05:35] LABS: #Eosinphils 0.2 thou/uL (0.0-0.7); #Lymphocytes 2.2 thou/uL (1.20-3.40); #Monocytes 0.7 thou/uL (0.11-0.59); #Neutrophils 5.3 thou/uL (1.40-6.50); %Basophils 0.5 % (0.0-1.0); %Eosinophils 2.9 % (0.0-10.0); %Lymphocytes 25.9 % (21.0-51.0); %Monocytes 8.1 % (0.0-10.0); %Neutrophils 62.7 % (42.0-75.0); Mean Corpuscular HGB CONC 32.9 g/dL (32.0-36.0); Mean Corpuscular Hemoglobin 30.3 pg (27.0-31.0); Mean Corpuscular Volume 91.9 fL (78.0-98.0); Mean Platelet Volume 9.2 fL (7.4-10.4); Platelet Count 225 thou/uL (130-400); Red Blood Cell (RBC) Count 4.29 mill/uL (4.20-5.40); White Blood Cell (WBC) Count 8.5 thou/uL (4.8-10.8)
[2018-08-28 05:57] LABS: Anion Gap 12 mmol/L (10-20); BUN (Urea Nitrogen) 21 mg/dL (9.8-20.1); Calc. Creatinine Clearance 115 mL/min (70-130); Calcium 9.5 mg/dL (7.8-10.44); Carbon Dioxide 30 mmol/L (22-29); Chloride 101 mmol/L (98-107); Estimated GFR-MDRD 77; Glucose 120 mg/dL (70-105); Potassium 3.7 mmol/L (3.5-5.1); Sodium 139 mmol/L (136-145)
[2018-08-28] MEDS ORDERED: Levothyroxine Sodium 125 MCG TAB PO SCH (06:00)
--- NOTE | 2018-08-28 07:50 | PDOC.FM ---
- Subjective Subjective: Pt reports she feels better symptomatically, but she is very difficult to obtain a hx from. Some of her answers were not consistent with the question asked, she seemed confused and was very slow with her responses. She was unsure of a lot of the answers. Her speech was WNL, but content was not consistent. She denies lightheadedness, dizziness, left leg pain, although she says her left leg bothers her. Her relative at bedside said that her memory is poor and she gives everyone different answers. She said that she fell twice in the last few weeks and think it was either mechanical fall from tripping or her left leg giving out. - Objective MAR Reviewed: Yes Vital Signs & Weight: Vital Signs (12 hours) Temp Pulse Resp BP BP BP Pulse Ox 08/28/18 04:38 142/85 H 140/88 163/98 H 08/28/18 04:30 126/83 116/83 168/85 H 08/28/18 00:07 98.6 F 60 20 155/87 H 98 08/27/18 20:21 98.1 F 71 18 156/95 H 97 08/27/18 20:08 98.1 F 98 20 156/95 H 97 Weight Weight 91.5 kg I&O: 08/27/18 08/28/18 08/29/18 06:59 06:59 06:59 Intake Total 500 Balance 500 Result Diagrams: 08/28/18 05:02 08/28/18 05:02 Phys Exam - Physical Examination Constitutional: NAD HEENT: moist MMs, sclera anicteric Respiratory: no wheezing, no rales, no rhonchi, clear to auscultation bilateral Cardiovascular: RRR, no significant murmur, no rub Gastrointestinal: soft, non-tender, no distention, positive bowel sounds Musculoskeletal: no edema, pulses present no tenderness to palpation of left leg Neurological: non-focal, moves all 4 limbs Deviation from normal: flat affect, slow responses, memory diminished grossly, AOx2 Skin: no rash, cap refill <2 seconds Dx/Plan (1) Encephalopathy Code(s): G93.40 - ENCEPHALOPATHY, UNSPECIFIED Status: Acute (2) Atrial fibrillation Code(s): I48.91 - UNSPECIFIED ATRIAL FIBRILLATION Status: Acute Qualifiers: Atrial fibrillation type: unspecified Qualified Code(s): I48.91 - Unspecified atrial fibrillation (3) Heart failure with preserved ejection fraction Code(s): I50.30 - UNSPECIFIED DIASTOLIC (CONGESTIVE) HEART FAILURE Status: Acute Qualifiers: Heart failure chronicity: chronic Qualified Code(s): I50.32 - Chronic diastolic (congestive) heart failure (4) Type 2 diabetes mellitus, uncontrolled Code(s): E11.65 - TYPE 2 DIABETES MELLITUS WITH HYPERGLYCEMIA Status: Acute Qualifiers: Glycemic state: with hyperglycemia Qualified Code(s): E11.65 - Type 2 diabetes mellitus with hyperglycemia (5) Weakness Code(s): R53.1 - WEAKNESS Status: Acute (6) CAD (coronary artery disease) Code(s): I25.10 - ATHSCL HEART DISEASE OF [place] CORONARY ARTERY W/O ANG PCTRS Status: Chronic Qualifiers: Coronary Disease-Associated Artery/Lesion type: [place] artery [place] vs. transplanted heart: [place] heart Associated angina: angina presence unspecified Qualified Code(s): I25.10 - Atherosclerotic heart disease of [place] coronary artery without angina pectoris (7) Hyperlipemia Code(s): E78.5 - HYPERLIPIDEMIA, UNSPECIFIED Status: Chronic Qualifiers: Hyperlipidemia type: unspecified Qualified Code(s): E78.5 - Hyperlipidemia , unspecified (8) Hypertension Code(s): I10 - ESSENTIAL (PRIMARY) HYPERTENSION Status: Chronic Qualifiers: Hypertension type: essential hypertension Qualified Code(s): I10 - Essential (primary) hypertension (9) Hypothyroidism Code(s): E03.9 - HYPOTHYROIDISM, UNSPECIFIED Status: Chronic Qualifiers: Hypothyroidism type: unspecified Qualified Code(s): E03.9 - Hypothyroidism , unspecified (10) S/P CABG x 4 Status: Chronic - Plan Plan: Encephalopathy 2/2 vascular dementia vs MDD vs conversion disorder Patient w/ history of depression and memory deficits that have been worsening over the past few months. TSH WNL. CT showing no acute process. B12 and folate WNL. HIV/RPR negative. UDS WNL. Pt was started on duloxetine by PCP two weeks ago due to worsening depression. - Blood and urine cx pending - MRI brain - PT/OT to eval and treat h/o Fall Pt with two recent falls. No physical abnormality found with left leg. Orthostatic hypotension discovered with vital signs, which could be contributing - PT/OT Hypothyroidism - aware, will continue home medication - TSH WNL MDD - Patient recently started on duloxetine about 2weeks ago - Flat affect on exam, currently no SI/HI, hallucinations of delusions DM2 A1c 8.2 - mild SSI - Cont home insulin 16U long acting daily Hx of Atrial Fibrillation - aware, continue home meds; pt RRR on exam CAD s/p CABG - Cont home meds HTN - Cont home meds HLD - Cont home meds DISPO: admit to stroke obs DVT ppx: lovenox Code status: Full Addendum - Attending - Attending Attestation Date/Time: 08/28/18 [id number] I personally evaluated the patient and discussed the management with Dr. Harrington I agree with the History, Examination, Assessment and Plan documented above with any addition or exceptions noted below.MRI no acute CVA ischemic changes c/ w her risk factors . 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
[2018-08-28] MEDS ORDERED: metFORMIN 500 MG TAB PO SCH (08:00)
[2018-08-28] MEDS ORDERED: Aspirin 325 MG TAB PO SCH (08:00)
[2018-08-28] MEDS ORDERED: Carvedilol 3.125 MG TAB PO SCH (08:00)
[2018-08-28] MEDS ORDERED: Enoxaparin Sodium 40 MG/0.4 ML SYRINGE SC SCH (09:00)
[2018-08-28] MEDS ORDERED: Lisinopril 20 MG TAB PO SCH (09:00)
[2018-08-28] MEDS ORDERED: Insulin Glargine 16 UNITS in Pre-Filled Syringe 1 EACH SC SCH (09:00)
[2018-08-28] MEDS ORDERED: pyridOXINE 50 MG (B6) TAB PO SCH (09:00)
[2018-08-28] MEDS ORDERED: INSULIN GLARGINE HUM REC ANLOG 16 UNIT SQ SCH (09:00)
[2018-08-28] MEDS ORDERED: DULoxetine 60 MG CAP PO SCH (09:00)
--- NOTE | 2018-08-28 10:05 | MRI ---
MRI BRAIN WITH AND WITHOUT CONTRAST: Date: 08/28/18 HISTORY: 58-year-old female with lower extremity weakness and memory loss, and dysarthria. TECHNIQUE: Multiple sequences obtained in axial, sagittal, and coronal planes; pre and post IV injection of gado linium-based contrast agent: 18 mL MultiHance. FINDINGS: The ventricles are normal in size and configuration. There is no restricted diffusion, abnormal intr aaxial enhancement, mass, midline shift or any other mass effect, recent intraaxial hemorrhage, or ex traaxial fluid collection. There are a few scattered punctate T2-hyperintensities in the cerebral whi te matter consistent with minimal chronic ischemic white matter changes due to mild microvascular ath erosclerosis. IMPRESSION: 1. Minimal chronic ischemic white matter changes. 2. Otherwise negative. jnr POS: AMADOU
[2018-08-28 11:32] VITALS: TEMP 97.4
[2018-08-28 13:14] VITALS: BP 148/85
[2018-08-28] MEDS ORDERED: Atorvastatin Calcium 40 MG TAB PO SCH (21:00)
--- NOTE | 2018-08-29 06:06 | DIS ---
DATE OF ADMISSION: 08/27/2018 DATE OF DISCHARGE: 08/28/2018 ADMITTING ATTENDING: Mara Tanner MD DISCHARGE ATTENDING: Valdo Aguilar MD. ADMITTING RESIDENT: Keena Benjamin MD DISCHARGE RESIDENT: Betina Harrington MD. CONSULTS: None. PROCEDURES: None. IMAGIN. Brain CT showed no acute intracranial abnormalities. 2. Brain MRI showed minimal chronic ischemic white matter changes, otherwise negative. PRIMARY DIAGNOSES: 1. Encephalopathy likely secondary to depression. 2. Generalized weakness. 3. History of fall. 4. Orthostatic hypotension. SECONDARY DIAGNOSES: 1. Insulin-dependent diabetes type 2. 2. Hypothyroidism. 3. Major depressive disorder. 4. Coronary artery disease status post CABG. 5. Hyperlipidemia. 6. Hypertension. 7. Medication noncompliance. DISCHARGE MEDICATIONS: 1. Aspirin 325 mg p.o. daily. 2. Atorvastatin 80 mg p.o. at bedtime. 3. Carvedilol 3.125 mg p.o. b.i.d. with meals. 4. Levothyroxine 125 mcg p.o. daily. 5. Lisinopril 20 mg p.o. daily. 6. Vitamin B6 100 mg p.o. daily. 7. Duloxetine 60 mg p.o. daily. 8. Toujeo SoloSTAR 16 units subcu q.a.m. 9. Metformin 1000 mg p.o. b.i.d. with meals. DISCONTINUED MEDICATIONS: None. HISTORY OF PRESENT ILLNESS/HOSPITAL COURSE: This is a 58-year-old female with past medical history of diabetes, hypertension, hyperlipidemia, coronary artery disease status post CABG, and hypothyroidism, who presented to the ER after altered mental status. Per the patient's family, she has had a progressive decline in her memory and concentration over the past 6 months or so. However, in the last 2 weeks, it has gotten significantly worse. She has actually fallen twice in the last 2 weeks. The cause of the fall is not completely known, but it sounds either mechanical from tripping versus her left leg "giving out." The patient developed slurring speech on the day of admission as well as some subjective numbness in her legs. The patient had gotten to where she could no longer care for herself. She was brought into the ER. Her CT of her head showed no acute process. She also had an MRI of her head that showed some mild ischemic changes, but no acute process. The patient had been being worked up by Dr. Cannon as outpatient for this problem. He has started her on duloxetine about 2 weeks ago, which has not shown any change as of yet; however , the suspicion for depression playing a role in her decline in memory and concentration. The patient has gotten where she can no longer work at the job she used to have and her mom has to take care of her at home. The patient had a negative UDS. Her CBC and coags were within normal limits. The patient's liver and kidney functions were normal. The patient had a normal vitamin B12 and folate. She had a negative troponin x3. The patient had a hemoglobin A1c of 8.2 and normal TSH. The patient had a normal creatine kinase and a normal UA. The patient had a negative HIV and syphilis. The patient had orthostatic blood pressure checked that showed orthostatic hypotension. The patient is on a beta armen. The patient's symptoms were discussed in detail with the patient's mother as it was difficult to obtain history from the patient due to her decreased memory and concentration. Discussed normal MRI and the likelihood that this is psychiatric in nature. We will discuss case further with Dr. Cannon. I gave order for outpatient physical therapy to improve the patient's strength and coordination. The patient's mother informed me that she has an appointment set up with Dr. Alvarenga to discuss her leg pain as Dr. Cannon suspects she has decreased blood flow in one of her legs. The patient's appointment is scheduled for this Saturday and they intend on keeping this appointment. DISPOSITION: Stable. DISCHARGE INSTRUCTIONS: 1. Location, home with outpatient physical therapy. 2. Diet, heart healthy and diabetic diet. 3. Activity as tolerated. 4. Follow up with Dr. Cannon within 7 days, with Dr. Alvarenga within 7 days and consider followup with Psychiatry and/or Psychology for cognitive behavioral therapy. Job ID: [id number] MTDD
--- NOTE | 2018-08-30 10:38 | EKG ---
Test Reason : Blood Pressure : / mmHG Vent. Rate : 072 BPM Atrial Rate : 072 BPM P-R Int : 120 ms QRS Dur : 090 ms QT Int : 404 ms P-R-T Axes : 033 -01 085 degrees QTc Int : 442 ms Normal sinus rhythm Moderate voltage criteria for LVH, may be normal variant Inferior infarct , age undetermined Anterior infarct , age undetermined Abnormal ECG Confirmed by RESHMA HILTON ([id number]), technical writer and editor AVNI PUENTE ([id number]) on 08/30/2018 10:37:51 AM Referred By: Confirmed By:RESHMA HILTON
== END 2018-08-28 12:46 | disposition home or self-care (01) ==
LOC: ERS 17:21 → 2SE 20:25
PROVIDERS: ADMIT Student in an Organized Health Care Education/Training Program; ATTEND Student in an Organized Health Care Education/Training Program
DX: G93.40 Encephalopathy, unspecified (principal); I95.1 Orthostatic hypotension; I25.10 Atherosclerotic heart disease of native coronary artery without angina pectoris; E78.5 Hyperlipidemia, unspecified; F32.9 Major depressive disorder, single episode, unspecified; E03.9 Hypothyroidism, unspecified; F17.200 Nicotine dependence, unspecified, uncomplicated; E11.65 Type 2 diabetes mellitus with hyperglycemia; I13.0 Hypertensive heart and chronic kidney disease with heart failure and stage 1 through stage 4 chronic kidney disease, or unspecified chronic kidney disease; E11.22 Type 2 diabetes mellitus with diabetic chronic kidney disease; N18.9 Chronic kidney disease, unspecified; I50.32 Chronic diastolic (congestive) heart failure; E11.42 Type 2 diabetes mellitus with diabetic polyneuropathy; R53.1 Weakness; Z79.4 Long term (current) use of insulin; Z79.899 Other long term (current) drug therapy; Z88.8 Allergy status to other drugs, medicaments and biological substances; Z95.1 Presence of aortocoronary bypass graft; Z91.14 Patient's other noncompliance with medication regimen
CPT/HCPCS: 36415; 36416; 51701; 70450; 70553; 80048; 80053; 80306; 80307; 81003; 81015; 82550; 82607; 82746; 83036; 84443; 84484; 85025; 85610; 85652; 85730; 86780; 87389; 90471; 90732; 93005; 96372; A4353; G0009; G0378; J1650; J1825

== ENCOUNTER 2018-09-10 15:26 | Outpatient (CLI) | payer OTHER ==
--- NOTE | 2018-09-10 15:56 | RAD ---
RIGHT FOOT 3 VIEWS: HISTORY: Foot pain and swelling. FINDINGS: Minimal arthritic changes of the 1st metatarsophalangeal joint are seen. There are calcaneal spurs n oted. There is some ossification seen on the dorsal side of the talus and at the talonavicular joint . These would suggest older injuries, probably avulsive-type injuries. There is also some small [place] ear body density seen on the lateral view at the base of the metatarsal. It is difficult to visualiz e on the AP projection but, again, probably the sequelae of an older injury. There does appear to be some soft tissue swelling on the dorsum of the foot. IMPRESSION: 1. Findings that would suggest some old avulsive injuries off the dorsum of the foot in the region o f the talonavicular joint and base of metatarsal region. POS: TPC
--- NOTE | 2018-09-10 15:59 | RAD ---
LEFT FOOT THREE VIEWS: 09/10/18 HISTORY: Foot pain and swelling. Calcaneal spurs are present. There is somewhat similar changes to the opposite foot. There is some [place] changes which would suggest some older avulsive injuries at the level of the talonavicular joint. These are somewhat well corticated and I doubt are acute in nature. Minimal arthritic changes of the first metatarsophalangeal joints are seen. IMPRESSION: 1. Old appearing avulsive type injuries at the talonavicular joint. 2. Calcaneal spurs. POS: TPC
== END 2018-09-10 15:27 | disposition home or self-care (01) ==
LOC: BICRAD 15:26
PROVIDERS: ATTEND Family Medicine
DX: M79.671 Pain in right foot (principal); M79.672 Pain in left foot; M77.32 Calcaneal spur, left foot

== ENCOUNTER 2018-11-26 13:07 | Outpatient (CLI) | payer OTHER ==
--- NOTE | 2018-11-26 14:49 | MRI ---
MRI OF THE LUMBAR SPINE WITHOUT CONTRAST: 11/26/18 Multiplanar and multisequential images lumbar spine obtained. INDICATIONS: Back pain. Leg weakness. FINDINGS: The lumbar vertebrae maintain height. No evidence of vertebral body edema or compression. Mild jodie listhesis at L4-5 is noted measuring approximately 5 mm. There is mild loss of disc space at L4-5. Th e other disc spaces are preserved. At L1-2, minimal disc bulge. Mild facet arthrosis. No central canal or foraminal stenosis. At L2-3, no significant disc bulge. Mild facet hypertrophy. No significant central canal or foraminal stenosis. At L3-4, minimal disc bulge. Moderate facet and ligamentous hypertrophy. Posterior epidural fat is pr esent. These changes result in mild central canal stenosis. At L4-5, there is anterolisthesis as described above. There is a broad based disc bulge/protrusion. T he facet and ligamentous hypertrophy is prominent. These changes combine to result in severe central canal stenosis. Bilateral foraminal stenosis more severe on the left. There is asymmetric disc bulge to the left which contributes to the foraminal stenosis. At L5-S1, there is a diffuse disc bulge with a small central protrusion. Moderate facet and ligamento us hypertrophy. A congenitally smaller thecal sac prevents significant central canal stenosis. There is mild foraminal narrowing due to the facet hypertrophy. IMPRESSION: There is severe central canal stenosis at L4-5 with bilateral foraminal stenosis at this level as nate cribed above. POS: [facility]
== END 2018-11-26 13:08 | disposition home or self-care (01) ==
LOC: BICMRI 13:07
PROVIDERS: ATTEND Psychiatry & Neurology Neurology
DX: R29.898 Other symptoms and signs involving the musculoskeletal system (principal); M48.061 Spinal stenosis, lumbar region without neurogenic claudication; M48.07 Spinal stenosis, lumbosacral region
CPT/HCPCS: 72148

== ENCOUNTER 2019-03-22 10:08 | Emergency (ER) | payer SELFPAY | END 2019-03-22 11:11 | disposition home or self-care (01) | LOC: ERS 10:08 | DX: E11.65 Type 2 diabetes mellitus with hyperglycemia (principal); E78.5 Hyperlipidemia, unspecified; I10 Essential (primary) hypertension; F41.9 Anxiety disorder, unspecified; F32.9 Major depressive disorder, single episode, unspecified; I48.91 Unspecified atrial fibrillation; I25.10 Atherosclerotic heart disease of native coronary artery without angina pectoris; Z79.891 Long term (current) use of opiate analgesic; Z79.4 Long term (current) use of insulin; Z79.899 Other long term (current) drug therapy | CPT/HCPCS: 36416; 99284 ==

== ENCOUNTER 2019-07-21 02:04 | Emergency (ER) | payer OTHER, SELFPAY ==
[2019-07-21] MEDS ORDERED: Meclizine HCl 25 MG TAB ONE ×2 (02:48→02:54)
[2019-07-21 03:19] LABS: Mean Corpuscular HGB CONC 32.2 g/dL (32.0-36.0); Mean Corpuscular Hemoglobin 29.2 pg (27.0-31.0); Mean Corpuscular Volume 90.6 fL (78.0-98.0); Mean Platelet Volume 8.6 fL (7.4-10.4); Platelet Count 283 thou/uL (130-400); RBC Distribution Width 11.8 % (11.5-14.5)
[2019-07-21 03:20] LABS: %Eosinophils 2.6 % (0.0-10.0)
[2019-07-21 03:22] LABS: #Eosinphils 0.3 thou/uL (0.0-0.7); #Lymphocytes 2.1 thou/uL (1.20-3.40); #Monocytes 0.8 thou/uL (0.11-0.59); #Neutrophils 9.8 thou/uL (1.40-6.50); %Basophils 0.2 % (0.0-1.0); %Lymphocytes 15.8 % (21.0-51.0); %Monocytes 6.1 % (0.0-10.0); %Neutrophils 75.3 % (42.0-75.0)
[2019-07-21 03:44] LABS: ALT (SGPT) 27 U/L (8-55); AST (SGOT) 26 U/L (5-34); Alkaline Phosphatase 125 U/L (40-110); Anion Gap 13 mmol/L (10-20); BUN (Urea Nitrogen) 19 mg/dL (9.8-20.1); Bilirubin, Total 0.3 mg/dL (0.2-1.2); Calc. Creatinine Clearance 0 mL/min (70-130); Calcium 9.6 mg/dL (7.8-10.44); Carbon Dioxide 31 mmol/L (22-29); Chloride 98 mmol/L (98-107); Estimated GFR-MDRD 74; Globulin 3.6 g/dL (2.4-3.5); Glucose 90 mg/dL (70-105); Potassium 3.5 mmol/L (3.5-5.1); Protein, Total 7.6 g/dL (6.0-8.3); Sodium 138 mmol/L (136-145)
--- NOTE | 2019-07-21 07:36 | CT ---
PRELIMINARY REPORT/[facility]/EMERGENCY AFTER HOURS PROCEDURE EXAM: CT Head Without Intravenous Contrast. CLINICAL HISTORY: [id number] presents to the ED c/o sweating, dizziness, and feeling clammy after waking up just [employer]. Pt denie s pain but states she feels cold and nauseated. Denies vomiting. Pt reports hx of HTN and DM. TECHNIQUE: Axial computed tomography images of the head/brain without intravenous contrast. COMPARISON: None provided. FINDINGS: BRAIN: No acute intraparenchymal hemorrhage. No mass lesion. No CT evidence for acute territorial inf arct. No midline shift or extra-axial collection. VENTRICLES: No hydrocephalus. ORBITS: The orbits are unremarkable. SINUSES AND MASTOIDS: The paranasal sinuses and mastoid air cells are clear. SOFT TISSUES: No significant facial or scalp soft tissue swelling evident. No radiopaque foreign body is seen. BONES: No acute skull fracture. IMPRESSION: No acute intracranial abnormality. ELECTRONICALLY SIGNED BY: Alissa Lowe MD Jul 21, 2019 3:56:01 AM LANG INTERPRETER This report is intended for review by the ordering physician only, in accordance of law. If you recei ve this report in error, please call [facility] at [phone]. FINAL REPORT CT BRAIN WITHOUT CONTRAST: I agree with the report given by Dr. Alissa Lowe of [facility]. Transcribed Date/Time: 07/21/2019 8:32 AM
== END 2019-07-21 04:23 | disposition home or self-care (01) ==
LOC: ERS 02:04
DX: R42 Dizziness and giddiness (principal); E03.9 Hypothyroidism, unspecified; E11.9 Type 2 diabetes mellitus without complications; I48.91 Unspecified atrial fibrillation; E78.5 Hyperlipidemia, unspecified; I10 Essential (primary) hypertension; F41.9 Anxiety disorder, unspecified; F32.9 Major depressive disorder, single episode, unspecified; Z87.891 Personal history of nicotine dependence
CPT/HCPCS: 36415; 36416; 70450; 80053; 84443; 85025; 93005; J8597

== ENCOUNTER 2022-10-23 22:40 | Emergency (ER) | payer MEDICARE, MEDICAID ==
[2022-10-23 23:54] LABS: #Basophils 0.1 thou/uL (0.0-0.2); #Eosinphils 0.2 thou/uL (0.0-0.7); #Monocytes 1.1 thou/uL (0.11-0.59); #Neutrophils 8.1 thou/uL (1.40-6.50); %Basophils 0.7 % (0.0-1.0); %Eosinophils 1.4 % (0.0-10.0); %Lymphocytes 11.8 % (21.0-51.0); %Monocytes 9.8 % (0.0-10.0); %Neutrophils 75.7 % (42.0-75.0); Mean Corpuscular HGB CONC 31.9 g/dL (32.0-36.0); Mean Corpuscular Hemoglobin 29.3 pg (27.0-31.0); Mean Corpuscular Volume 91.8 fl (78.0-98.0); Mean Platelet Volume 10.4 fL (7.4-10.4); Platelet Count 512 10x3/uL (130-400); RBC Distribution Width 15.2 % (11.5-14.5); Red Blood Cell (RBC) Count 3.76 mill/uL (4.20-5.40); White Blood Cell (WBC) Count 10.7 10x3/uL (4.8-10.8)
[2022-10-24 00:06] LABS: Prothrombin Time 13.7 sec (12.0-14.7)
[2022-10-24 00:07] LABS: PTT 27.8 sec (22.9-36.1)
[2022-10-24 00:17] LABS: ALT (SGPT) 53 U/L (8-55); AST (SGOT) 50 U/L (5-34); Albumin 2.8 g/dL (3.4-4.8); Alkaline Phosphatase 103 U/L (40-110); Anion Gap 13 mmol/L (10-20); BUN (Urea Nitrogen) 6 mg/dL (9.8-20.1); Bilirubin, Total 0.2 mg/dL (0.2-1.2); Calc. Creatinine Clearance 0 mL/min (70-130); Calcium 8.9 mg/dL (7.8-10.44); Carbon Dioxide 28 mmol/L (23-31); Chloride 100 mmol/L (98-107); Estimated GFR 89; Globulin 3.4 g/dL (2.4-3.5); Glucose 199 mg/dL (80-115); Protein, Total 6.2 g/dL (5.8-8.1); Sodium 137 mmol/L (136-145)
[2022-10-24 01:00] LABS: Actual Bicarbonate (HCO3a) 30.9 mEq/L (22-28); Base Excess (BEa) 6.5 mEq/L (-2.0 to +3.0); CO2 Tension 43.4 mmHg (35.0-45.0); Calcium, Ionized (arterial) 1.18 mmol/L (1.12-1.30); Carboxyhemoglobin (COHb) 0.6 gm% (0.0-3.0); Hematocrit-ABG 36 % (36.0-47.0); Hemoglobin (Hb) 12.1 g/dL (12.0-16.0); O2 Tension (PaO2), arterial 90.9 mmHg (> 80.0); Potassium - ABG Lab 3.46 mmol/L (3.70-5.30)
[2022-10-24 01:02] LABS: Puncture Site LRA
[2022-10-24 01:06] LABS: Bilirubin Negative (Negative); Blood, Urine Negative (Negative); Clarity Clear (Clear); Glucose, Urine (Dipstick) Normal (Negative); Ketone, Urine Negative (Negative); Leukocyte Negative Leu/uL (Negative); Nitrite Negative (Negative); Protein, Urine (Dipstick) Negative (Neg-Trace); Specific Gravity, Urine 1.006 (1.002-1.036); Urobilinogen Normal mg/dL (Less than 2); pH, Urine 6.5 (5.0-9.0)
== END 2022-10-24 02:21 ==
LOC: ERS 22:40
DX: S09.90XA Unspecified injury of head, initial encounter (principal); I25.10 Atherosclerotic heart disease of native coronary artery without angina pectoris; E11.9 Type 2 diabetes mellitus without complications; I10 Essential (primary) hypertension; E78.5 Hyperlipidemia, unspecified; W18.30XA Fall on same level, unspecified, initial encounter; Z79.899 Other long term (current) drug therapy
CPT/HCPCS: 36415; 36600; 51701; 70450; 71045; 72125; 80053; 81003; 82140; 82805; 84484; 85025; 85610; 85730; 93005

== ENCOUNTER 2023-03-20 13:52 | Inpatient (IN) | payer MEDICARE, MEDICAID ==
[2023-03-20] MEDS ORDERED: Cefepime 2 GM VIAL ONE (14:34)
[2023-03-20] MEDS ORDERED: Vancomycin 1.5 GRAM/300 ML BAG 1.5 GM in Premix Bag 1 BAG IVPB SCH (14:45)
[2023-03-20 14:51] LABS: Bilirubin Negative (Negative); Blood, Urine Negative (Negative); CAUTI Indications for Culture Alt mental st,lethar; Clarity Turbid (Clear); Glucose, Urine (Dipstick) Normal (Negative); Ketone, Urine Negative (Negative); Leukocyte 75 Leu/uL (Negative); Nitrite Negative (Negative); Protein, Urine (Dipstick) 100 mg/dL (Neg-Trace); RBC/HPF 0-3 HPF (0-3); Specific Gravity, Urine 1.033 (1.002-1.036); pH, Urine 5.5 (5.0-9.0)
[2023-03-20 14:58] LABS: Bacteria/HPF 2+ HPF (None Seen); Yeast-Budding 2+ HPF (None Seen)
[2023-03-20 15:00] LABS: #Basophils 0.1 thou/uL (0.0-0.2); #Monocytes 1.2 thou/uL (0.11-0.59); #Neutrophils 15.3 thou/uL (1.40-6.50); %Basophils 0.4 % (0.0-1.0); %Lymphocytes 12.3 % (21.0-51.0); %Monocytes 6.2 % (0.0-10.0); %Neutrophils 80.5 % (42.0-75.0); Hematocrit 41.1 % (36.0-47.0); Hemoglobin 13.6 g/dL (12.0-16.0); Mean Corpuscular HGB CONC 33.1 g/dL (32.0-36.0); Mean Corpuscular Volume 90.5 fl (78.0-98.0); Mean Platelet Volume 12.1 fL (7.4-10.4); Platelet Count 150 10x3/uL (130-400); RBC Distribution Width 14.6 % (11.5-14.5); Red Blood Cell (RBC) Count 4.54 mill/uL (4.20-5.40)
[2023-03-20 15:02] LABS: Urine Culture Reflex No No
[2023-03-20] MEDS ORDERED: LevoFLOXacin 750 mg/D5W 150 ml Premix Bag ONE (15:12)
[2023-03-20 15:22] LABS: ALT (SGPT) 331 U/L (8-55); AST (SGOT) 558 U/L (5-34); Albumin 3.7 g/dL (3.4-4.8); Alkaline Phosphatase 80 U/L (40-110); Anion Gap 22 mmol/L (10-20); BUN (Urea Nitrogen) 64 mg/dL (9.8-20.1); Bilirubin, Total 0.4 mg/dL (0.2-1.2); Calc. Creatinine Clearance 0 mL/min (70-130); Calcium 9.5 mg/dL (7.8-10.44); Carbon Dioxide 18 mmol/L (23-31); Chloride 107 mmol/L (98-107); Estimated GFR 13; Globulin 4.1 g/dL (2.4-3.5); Glucose 255 mg/dL (80-115); Potassium 4.7 mmol/L (3.5-5.1); Protein, Total 7.8 g/dL (5.8-8.1); Sodium 142 mmol/L (136-145)
[2023-03-20 15:27] LABS: Troponin I 0.183 ng/mL (< 0.028)
[2023-03-20] MEDS ORDERED: Ondansetron PF 4 MG/2 ML Vial IVP PRN (16:22)
[2023-03-20] MEDS ORDERED: Acetaminophen 325 MG TAB PO PRN (16:22)
[2023-03-20] MEDS ORDERED: Ondansetron ODT 4 MG TAB PO PRN (16:22)
[2023-03-20] MEDS ORDERED: Dextrose 50% Abboject 50 ML SYRINGE SLOW IVP PRN (16:33)
[2023-03-20] MEDS ORDERED: Glucagon 1 MG/ML KIT IM PRN (16:33)
[2023-03-20] MEDS ORDERED: Dextrose 5% in Water 1,000 ML IV PRN (16:33)
[2023-03-20] MEDS ORDERED: Rocuronium Bromide 10 MG/ML (10ML VIAL) ONE (18:23)
[2023-03-20 18:28] LABS: Lactic Acid 4.3 mmol/L (0.5-2.2); Troponin I 0.243 ng/mL (< 0.028)
[2023-03-20] MEDS ORDERED: NOREPINEPHRINE 8 MG/250 ML-D5W 250 ML ONE (18:35)
[2023-03-20] MEDS ORDERED: Ventilator Sedation Protocol 1 EACH FS SCH (18:46)
[2023-03-20 18:47] LABS: Actual Bicarbonate (HCO3a) 17.2 mEq/L (22-28); Base Excess (BEa) -5.7 mEq/L (-2.0 to +3.0); CO2 Tension 26.6 mmHg (35.0-45.0); Carboxyhemoglobin (COHb) 0.3 gm% (0.0-3.0); Hematocrit-ABG 35 % (36.0-47.0); Hemoglobin (Hb) 11.8 g/dL (12.0-16.0); O2 Tension (PaO2), arterial 232.2 mmHg (> 80.0); Potassium - ABG Lab 3.78 mmol/L (3.70-5.30); pH, Arterial 7.429 (7.35-7.45)
[2023-03-20 18:48] LABS: Puncture Site LBA
[2023-03-20] MEDS: NOREPINEPHRINE 8 MG/250 ML-D5W 250 ML IVPB SCH (19:00)
[2023-03-20] MEDS ORDERED: Lorazepam 2 MG/ML VIAL SLOW IVP PRN (19:15)
[2023-03-20] MEDS ORDERED: DISCONTINUE PREVIOUS NARCOTIC PAIN MEDICATIONS AND BENZODIAZEPINES FS SCH (19:15)
[2023-03-20] MEDS ORDERED: Fentanyl CADD 100 ML IV SCH (19:15)
[2023-03-20] MEDS ORDERED: Fentanyl BOLUS 250 ML IVPB PRN (19:15)
[2023-03-20] MEDS ORDERED: Propofol 1,000 MG/100 ML VIAL IV PRN (19:15)
[2023-03-20] MEDS ORDERED: Propofol BOLUS 1,000 MG/100 ML VIAL IV PRN (19:15)
[2023-03-20] MEDS ORDERED: Morphine 2 MG/ML VIAL SLOW IVP PRN (19:15)
[2023-03-20] MEDS: Lactated Ringer's 1,000 ML IV SCH ×2 (20:52→21:31)
[2023-03-20] MEDS ORDERED: Vancomycin 1 GM in Premix Bag 1 BAG IVPB SCH (21:00)
[2023-03-20] MEDS ORDERED: levETIRAcetam 500 MG TAB PO SCH (21:00)
[2023-03-20] MEDS: Carvedilol 3.125 MG TAB PO SCH (21:03)
[2023-03-20] MEDS: Atorvastatin Calcium 40 MG TAB PO SCH (21:03)
[2023-03-20] MEDS: Donepezil HCl 10 MG TAB PO SCH (21:04)
[2023-03-20] MEDS: levETIRAcetam 500 MG/5 ML VIAL SLOW IVP SCH (21:30)
[2023-03-20] MEDS: Heparin 5,000 UNITS/ML VIAL SC SCH (21:30)
[2023-03-20 22:03] LABS: Hematocrit 37.3 % (36.0-47.0); Hemoglobin 12.5 g/dL (12.0-16.0); Mean Corpuscular HGB CONC 33.5 g/dL (32.0-36.0); Mean Corpuscular Hemoglobin 30.3 pg (27.0-31.0); Mean Corpuscular Volume 90.3 fl (78.0-98.0); Mean Platelet Volume 11.8 fL (7.4-10.4); Platelet Count 125 10x3/uL (130-400); RBC Distribution Width 14.7 % (11.5-14.5); Red Blood Cell (RBC) Count 4.13 mill/uL (4.20-5.40); White Blood Cell (WBC) Count 22.3 10x3/uL (4.8-10.8)
[2023-03-20 22:11] LABS: Delete Auto Diff?? YES; Manual Diff?? YES
[2023-03-20 22:18] LABS: ALT (SGPT) 493 U/L (8-55); AST (SGOT) 1193 U/L (5-34); Albumin 3.5 g/dL (3.4-4.8); Alkaline Phosphatase 79 U/L (40-110); Anion Gap 23 mmol/L (10-20); BUN (Urea Nitrogen) 69 mg/dL (9.8-20.1); Bilirubin, Total 0.5 mg/dL (0.2-1.2); Calc. Creatinine Clearance 17 mL/min (70-130); Carbon Dioxide 14 mmol/L (23-31); Chloride 109 mmol/L (98-107); Estimated GFR 12; Globulin 3.9 g/dL (2.4-3.5); Glucose 286 mg/dL (80-115); Potassium 4.3 mmol/L (3.5-5.1); Protein, Total 7.4 g/dL (5.8-8.1); Sodium 142 mmol/L (136-145)
[2023-03-20 22:20] LABS: Lactic Acid 2.7 mmol/L (0.5-2.2)
[2023-03-20 22:28] LABS: Critical Call Chem Troponin I RESULT DECREASING; Troponin I 0.233 ng/mL (< 0.028)
[2023-03-20 22:34] LABS: Band 10 % (5-11); Burr Cells MODERATE= 6-15 cells HPF (0-1); CellaVision Operator ID lab.sh2; Lymphocytes 11 % (21-51); Monocytes 2 % (0-10); Neutrophil 78 % (42-75); Platelet Adequacy Comment Platelets Decreased; Poikilocytosis SLIGHT = 6-15 cells HPF (0-5); Polychromasia SLIGHT = 2-3 cells HPF (0-2); Smudge Cells 9.6 %; Total Cell Count 104
[2023-03-20] MEDS: HumaLOG 300 UNITS/3 ML VIAL SC PRN (23:34)
[2023-03-20] MEDS ORDERED: Vancomycin Dose by Levels Sliding Scale (Wt 71-99) FS SCH (23:45)
[2023-03-20] MEDS ORDERED: Sodium Bicarb 50 MEQ/50 ML VIAL IVP SCH (23:45)
[2023-03-20] MEDS ORDERED: Sodium Bicarbonate 50 MEQ in Sodium Chloride 0.45% 1,000 ML IV SCH (23:59)
[2023-03-21] LABS: Actual Bicarbonate (HCO3a) 16.9 mEq/L (22-28); Base Excess (BEa) -5.2 mEq/L (-2.0 to +3.0); Calcium, Ionized (arterial) 1.14 mmol/L (1.12-1.30); Carboxyhemoglobin (COHb) 0.1 gm% (0.0-3.0); Hematocrit-ABG 39 % (36.0-47.0); Hemoglobin (Hb) 13.1 g/dL (12.0-16.0); pH, Arterial 7.458 (7.35-7.45)
[2023-03-21 03:58] LABS: Hematocrit 33.6 % (36.0-47.0); Hemoglobin 11.5 g/dL (12.0-16.0); Mean Corpuscular HGB CONC 34.2 g/dL (32.0-36.0); Mean Corpuscular Hemoglobin 30.7 pg (27.0-31.0); Mean Corpuscular Volume 89.8 fl (78.0-98.0); Mean Platelet Volume 12.1 fL (7.4-10.4); Platelet Count 125 10x3/uL (130-400); RBC Distribution Width 14.7 % (11.5-14.5); Red Blood Cell (RBC) Count 3.74 mill/uL (4.20-5.40); White Blood Cell (WBC) Count 19.2 10x3/uL (4.8-10.8)
[2023-03-21 04:04] LABS: Delete Auto Diff?? YES; Manual Diff?? YES
[2023-03-21 04:24] LABS: ALT (SGPT) 430 U/L (8-55); AST (SGOT) 1009 U/L (5-34); Albumin 3.3 g/dL (3.4-4.8); Alkaline Phosphatase 77 U/L (40-110); Anion Gap 19 mmol/L (10-20); Anisocytosis SLIGHT = 6-15 cells HPF (0-5); BUN (Urea Nitrogen) 66 mg/dL (9.8-20.1); Band 11 % (5-11); Bilirubin, Total 0.4 mg/dL (0.2-1.2); Burr Cells SLIGHT = 2-5 cells HPF (0-1); CRP (Inflammatory) 10.33 mg/dL (= or < 0.5); Calc. Creatinine Clearance 19 mL/min (70-130); Calcium 8.8 mg/dL (7.8-10.44); Carbon Dioxide 20 mmol/L (23-31); CellaVision Operator ID lab.sh2; Chloride 108 mmol/L (98-107); Estimated GFR 14; Globulin 3.4 g/dL (2.4-3.5); Glucose 247 mg/dL (80-115); Lymphocytes 9 % (21-51); Macrocytosis SLIGHT = 6-15 cells HPF (0-5); Magnesium 1.2 mg/dL (1.6-2.6); Monocytes 4 % (0-10); Neutrophil 75 % (42-75); Ovalocytes SLIGHT = 2-5 cells HPF (0-1); Phosphorus 1.9 mg/dL (2.3-4.7); Platelet Adequacy Comment Platelets Decreased; Polychromasia SLIGHT = 2-3 cells HPF (0-2); Potassium 3.2 mmol/L (3.5-5.1); Protein, Total 6.7 g/dL (5.8-8.1); Smudge Cells 6.9 %; Sodium 144 mmol/L (136-145); Total Cell Count 101; Vacuoles MODERATE
[2023-03-21] MEDS: HumaLOG 300 UNITS/3 ML VIAL SC PRN (04:49)
[2023-03-21] MEDS ORDERED: Potassium Chloride 20 MEQ in Premix Bag 1 BAG IVPB SCH (05:00)
[2023-03-21] MEDS: Levothyroxine Sodium 125 MCG TAB PO SCH (05:32)
[2023-03-21 05:54] LABS: Puncture Site LBA
[2023-03-21] MEDS ORDERED: Potassium Phosphate 30 MMOL in Sodium Chloride 0.9% 500 ML IVPB SCH (08:45)
[2023-03-21] MEDS ORDERED: Magnesium Sulfate In Water 4 GM in Premix Bag 1 BAG IVPB SCH (08:45)
[2023-03-21] MEDS ORDERED: Dextrose 5% in Water 1,000 ML IV PRN (09:00)
[2023-03-21] MEDS ORDERED: Glucagon 1 MG/ML KIT IM PRN (09:00)
[2023-03-21] MEDS ORDERED: Lactated Ringer's 500 ML IV SCH (09:00)
[2023-03-21] MEDS ORDERED: Dextrose 50% Abboject 50 ML SYRINGE IVP PRN (09:00)
[2023-03-21] MEDS ORDERED: HumaLOG 300 UNITS/3 ML VIAL SC PRN (09:00)
[2023-03-21] MEDS ORDERED: FLU VACC QS2023-24(6MOS UP)/PF 60 MCG/0.5 ML SYRINGE IM ONE (09:00)
[2023-03-21] MEDS: Lactated Ringer's 1,000 ML IV SCH (09:18)
[2023-03-21] MEDS: Insulin Glargine 30 UNITS/0.3 ML VIAL SC SCH (09:24)
[2023-03-21] MEDS: Famotidine/PF 20 mg/2ml Vial SLOW IVP SCH (09:24)
[2023-03-21] MEDS: Heparin 5,000 UNITS/ML VIAL SC SCH ×3 (09:24→21:54)
[2023-03-21] MEDS: levETIRAcetam 500 MG/5 ML VIAL SLOW IVP SCH ×2 (09:24→21:54)
[2023-03-21] MEDS: Aspirin 81 mg Enteric Coated Tablet PO SCH (09:24)
[2023-03-21] MEDS: FLUoxetine HCl 20 MG CAP PO SCH (09:24)
[2023-03-21] MEDS: Senokot S 8.6-50 MG TAB PO SCH (09:26)
[2023-03-21] MEDS: Polyethylene Glycol 3350 17 GM Packet PO SCH (09:26)
[2023-03-21] MEDS: Carvedilol 3.125 MG TAB PO SCH (10:46)
[2023-03-21] MEDS: NOREPINEPHRINE 8 MG/250 ML-D5W 250 ML IVPB SCH (11:20)
[2023-03-21] MEDS ORDERED: PROPOFOL 20 ML ONE (12:51)
[2023-03-21] MEDS ORDERED: Lactated Ringer's 1,000 ML IV SCH (15:30)
[2023-03-21 16:03] LABS: Lactic Acid 2.8 mmol/L (0.5-2.2)
[2023-03-21 16:10] LABS: Anion Gap 16 mmol/L (10-20); BUN (Urea Nitrogen) 53 mg/dL (9.8-20.1); Calc. Creatinine Clearance 26 mL/min (70-130); Calcium 8.4 mg/dL (7.8-10.44); Carbon Dioxide 21 mmol/L (23-31); Chloride 110 mmol/L (98-107); Estimated GFR 21; Glucose 144 mg/dL (80-115); Magnesium 2.3 mg/dL (1.6-2.6); Potassium 3.9 mmol/L (3.5-5.1); Sodium 143 mmol/L (136-145)
[2023-03-21 16:13] LABS: Vancomycin, Random 8.2 ug/mL (See Comment)
[2023-03-21] MEDS: Cefepime 1 GM in Sodium Chloride 0.9% 100 ML IVPB SCH (16:39)
[2023-03-21] MEDS ORDERED: Vancomycin 1 GM in Premix Bag 1 BAG IVPB SCH (17:30)
[2023-03-21] MEDS: Atorvastatin Calcium 40 MG TAB PO SCH (21:54)
[2023-03-21] MEDS: Donepezil HCl 10 MG TAB PO SCH (21:54)
[2023-03-22 04:26] LABS: Hematocrit 30.3 % (36.0-47.0); Hemoglobin 10.2 g/dL (12.0-16.0); Mean Corpuscular HGB CONC 33.7 g/dL (32.0-36.0); Mean Corpuscular Hemoglobin 30.4 pg (27.0-31.0); Mean Corpuscular Volume 90.2 fl (78.0-98.0); Mean Platelet Volume 12.1 fL (7.4-10.4); Platelet Count 108 10x3/uL (130-400); RBC Distribution Width 14.9 % (11.5-14.5); Red Blood Cell (RBC) Count 3.36 mill/uL (4.20-5.40); White Blood Cell (WBC) Count 16.5 10x3/uL (4.8-10.8)
[2023-03-22 04:51] LABS: Delete Auto Diff?? YES; Manual Diff?? YES
[2023-03-22 04:55] LABS: ALT (SGPT) 408 U/L (8-55); AST (SGOT) 545 U/L (5-34); Albumin 2.7 g/dL (3.4-4.8); Alkaline Phosphatase 146 U/L (40-110); Anion Gap 12 mmol/L (10-20); BUN (Urea Nitrogen) 42 mg/dL (9.8-20.1); Bilirubin, Total 0.6 mg/dL (0.2-1.2); Calc. Creatinine Clearance 37 mL/min (70-130); Calcium 8.5 mg/dL (7.8-10.44); Carbon Dioxide 25 mmol/L (23-31); Chloride 110 mmol/L (98-107); Estimated GFR 32; Globulin 3.2 g/dL (2.4-3.5); Glucose 139 mg/dL (80-115); Magnesium 2.1 mg/dL (1.6-2.6); Potassium 3.8 mmol/L (3.5-5.1); Protein, Total 5.9 g/dL (5.8-8.1); Sodium 143 mmol/L (136-145)
[2023-03-22] MEDS: Lactated Ringer's 1,000 ML IV SCH ×2 (05:18→16:39)
[2023-03-22] MEDS: Levothyroxine Sodium 125 MCG TAB PO SCH (05:18)
[2023-03-22 05:23] LABS: Band 15 % (5-11); Burr Cells SLIGHT = 2-5 cells HPF (0-1); CellaVision Operator ID lab.abc; Eosinophils 1 % (0-10); Lymphocytes 2 % (21-51); Monocytes 4 % (0-10); Neutrophil 78 % (42-75); Nucleated RBC (Manual Ct) 1 % (0); Platelet Adequacy Comment Platelets Decreased; RBC Morphology Within Normal Limits; Smudge Cells 10.9 %; Total Cell Count 101
[2023-03-22 05:38] LABS: Phosphorus 2.3 mg/dL (2.3-4.7)
[2023-03-22] MEDS: Polyethylene Glycol 3350 17 GM Packet PO SCH (09:43)
[2023-03-22] MEDS: FLUoxetine HCl 20 MG CAP PO SCH (09:43)
[2023-03-22] MEDS: Famotidine/PF 20 mg/2ml Vial SLOW IVP SCH (09:44)
[2023-03-22] MEDS: Heparin 5,000 UNITS/ML VIAL SC SCH ×3 (09:44→21:11)
[2023-03-22] MEDS: Aspirin 81 mg Enteric Coated Tablet PO SCH (09:44)
[2023-03-22] MEDS: Senokot S 8.6-50 MG TAB PO SCH (09:44)
[2023-03-22] MEDS: levETIRAcetam 500 MG/5 ML VIAL SLOW IVP SCH ×2 (09:45→21:09)
[2023-03-22] MEDS ORDERED: LevoFLOXacin 500 mg/D5W 500 MG in Premix Bag 1 BAG IVPB SCH (14:00)
[2023-03-22] MEDS: Insulin Glargine 30 UNITS/0.3 ML VIAL SC SCH (14:06)
[2023-03-22] MEDS ORDERED: Insulin Glargine 30 UNITS/0.3 ML VIAL SC SCH (14:15)
[2023-03-22] MEDS: Cefepime 1 GM in Sodium Chloride 0.9% 100 ML IVPB SCH (15:25)
[2023-03-22] MEDS: HumaLOG 300 UNITS/3 ML VIAL SC PRN (16:38)
[2023-03-22 18:39] LABS: Vancomycin, Random 13.2 ug/mL (See Comment)
[2023-03-22] MEDS ORDERED: Vancomycin HCl 750 MG in Sodium Chloride 0.9% 250 ML 250 ML IVPB SCH (20:00)
[2023-03-22] MEDS: Donepezil HCl 10 MG TAB PO SCH (21:11)
[2023-03-22] MEDS: Atorvastatin Calcium 40 MG TAB PO SCH (21:11)
[2023-03-23] MEDS: HumaLOG 300 UNITS/3 ML VIAL SC PRN ×3 (04:16→15:56)
[2023-03-23] MEDS: Levothyroxine Sodium 125 MCG TAB PO SCH (05:20)
[2023-03-23 05:25] LABS: Hematocrit 30.1 % (36.0-47.0); Mean Corpuscular HGB CONC 33.2 g/dL (32.0-36.0); Mean Corpuscular Hemoglobin 30.1 pg (27.0-31.0); Mean Corpuscular Volume 90.7 fl (78.0-98.0); Mean Platelet Volume 13.1 fL (7.4-10.4); RBC Distribution Width 15.2 % (11.5-14.5); Red Blood Cell (RBC) Count 3.32 mill/uL (4.20-5.40); White Blood Cell (WBC) Count 17.7 10x3/uL (4.8-10.8)
[2023-03-23 05:54] LABS: ALT (SGPT) 505 U/L (8-55); AST (SGOT) 598 U/L (5-34); Albumin 2.5 g/dL (3.4-4.8); Alkaline Phosphatase 240 U/L (40-110); Anion Gap 11 mmol/L (10-20); BUN (Urea Nitrogen) 31 mg/dL (9.8-20.1); Bilirubin, Total 0.6 mg/dL (0.2-1.2); Calc. Creatinine Clearance 62 mL/min (70-130); Calcium 8.4 mg/dL (7.8-10.44); Carbon Dioxide 25 mmol/L (23-31); Chloride 108 mmol/L (98-107); Estimated GFR 56; Glucose 255 mg/dL (80-115); Potassium 3.7 mmol/L (3.5-5.1); Protein, Total 5.5 g/dL (5.8-8.1); Sodium 140 mmol/L (136-145)
[2023-03-23 05:58] LABS: Manual Diff?? YES
[2023-03-23 05:59] LABS: Delete Auto Diff?? YES; Platelet Count 103 10x3/uL (130-400)
[2023-03-23 07:17] LABS: Actual Bicarbonate (HCO3a) 23.5 mEq/L (22-28); Base Excess (BEa) -0.7 mEq/L (-2.0 to +3.0); CO2 Tension 37.7 mmHg (35.0-45.0); Calcium, Ionized (arterial) 1.18 mmol/L (1.12-1.30); Carboxyhemoglobin (COHb) 0.7 gm% (0.0-3.0); Hematocrit-ABG 41 % (36.0-47.0); Hemoglobin (Hb) 13.9 g/dL (12.0-16.0); O2 Tension (PaO2), arterial 74.5 mmHg (> 80.0); Potassium - ABG Lab 3.44 mmol/L (3.70-5.30); pH, Arterial 7.413 (7.35-7.45)
[2023-03-23 07:18] LABS: ALV-art Gradient 127.925 mmHg (0-20); Puncture Site LRA
[2023-03-23 07:31] LABS: Anisocytosis SLIGHT = 6-15 cells HPF (0-5); Band 10 % (5-11); Burr Cells MODERATE= 6-15 cells HPF (0-1); CellaVision Operator ID LAB.CMB; Lymphocytes 3 % (21-51); Macrocytosis SLIGHT = 6-15 cells HPF (0-5); Monocytes 1 % (0-10); Neutrophil 85 % (42-75); Ovalocytes SLIGHT = 2-5 cells HPF (0-1); Platelet Adequacy Comment Platelets Decreased; Poikilocytosis MODERATE=16-30 cells HPF (0-5); Total Cell Count 105
[2023-03-23] MEDS: Lactated Ringer's 1,000 ML IV SCH ×2 (09:02→14:09)
[2023-03-23] MEDS: levETIRAcetam 500 MG/5 ML VIAL SLOW IVP SCH ×2 (09:57→21:17)
[2023-03-23] MEDS: FLUoxetine HCl 20 MG CAP PO SCH (09:57)
[2023-03-23] MEDS: Heparin 5,000 UNITS/ML VIAL SC SCH ×2 (09:57→21:17)
[2023-03-23] MEDS: Polyethylene Glycol 3350 17 GM Packet PO SCH (09:57)
[2023-03-23] MEDS: Aspirin 81 mg Enteric Coated Tablet PO SCH (09:58)
[2023-03-23] MEDS: Senokot S 8.6-50 MG TAB PO SCH (09:58)
[2023-03-23] MEDS: Pantoprazole 40 MG VIAL IVP SCH (09:58)
[2023-03-23] MEDS: Insulin Glargine 30 UNITS/0.3 ML VIAL SC SCH (09:58)
[2023-03-23 12:28] LABS: Platelet Count 98 10x3/uL (130-400)
[2023-03-23 12:49] LABS: Fibrinogen 625 mg/dL (253-463)
[2023-03-23 12:51] LABS: D-Dimer Test 1.27 *mcg/mL (0.27-0.43); INR-International Normal Ratio 1.1; Prothrombin Time 14.9 sec (12.0-14.7)
[2023-03-23 12:52] LABS: PTT 107.9 sec (22.9-36.1)
[2023-03-23] MEDS: Cefepime 1 GM in Sodium Chloride 0.9% 100 ML IVPB SCH (15:10)
[2023-03-23 18:26] LABS: Vancomycin, Random 15.1 ug/mL (See Comment)
[2023-03-23] MEDS ORDERED: Vancomycin HCl 500 MG in Sodium Chloride 0.9% 100 ML IV SCH (18:45)
[2023-03-23] MEDS ORDERED: Vancomycin Dose by Levels Sliding Scale (Wt 71-99) FS SCH (18:45)
[2023-03-23] MEDS ORDERED: VANCOMYCIN 1.25 GM/250 ML BAG 1.25 GM in Premix Bag 1 BAG IVPB SCH (20:00)
[2023-03-23] MEDS: Donepezil HCl 10 MG TAB PO SCH (21:17)
[2023-03-23] MEDS: Atorvastatin Calcium 40 MG TAB PO SCH (21:17)
[2023-03-24] MEDS: Cefepime 1 GM in Sodium Chloride 0.9% 100 ML IVPB SCH (02:25)
[2023-03-24] MEDS: Lactated Ringer's 1,000 ML IV SCH ×3 (03:15→20:53)
[2023-03-24 04:40] LABS: Hematocrit 29.1 % (36.0-47.0); Hemoglobin 9.6 g/dL (12.0-16.0); Mean Corpuscular Hemoglobin 30.5 pg (27.0-31.0); Mean Corpuscular Volume 92.4 fl (78.0-98.0); Mean Platelet Volume 12.9 fL (7.4-10.4); Platelet Count 109 10x3/uL (130-400); RBC Distribution Width 15.5 % (11.5-14.5); Red Blood Cell (RBC) Count 3.15 mill/uL (4.20-5.40); White Blood Cell (WBC) Count 12.9 10x3/uL (4.8-10.8)
[2023-03-24 04:43] LABS: Delete Auto Diff?? YES; Manual Diff?? YES
[2023-03-24 05:10] LABS: ALT (SGPT) 698 U/L (8-55); AST (SGOT) 720 U/L (5-34); Albumin 2.5 g/dL (3.4-4.8); Alkaline Phosphatase 179 U/L (40-110); BUN (Urea Nitrogen) 20 mg/dL (9.8-20.1); Bilirubin, Direct 0.3 mg/dL (0.1-0.3); Bilirubin, Total 0.5 mg/dL (0.2-1.2); Calc. Creatinine Clearance 89 mL/min (70-130); Calcium 8.3 mg/dL (7.8-10.44); Carbon Dioxide 26 mmol/L (23-31); Chloride 111 mmol/L (98-107); Estimated GFR 87; Glucose 105 mg/dL (80-115); Magnesium 1.5 mg/dL (1.6-2.6); Potassium 3.4 mmol/L (3.5-5.1); Protein, Total 5.5 g/dL (5.8-8.1); Sodium 142 mmol/L (136-145)
[2023-03-24 05:13] LABS: Band 4 % (5-11); Burr Cells SLIGHT = 2-5 cells HPF (0-1); CellaVision Operator ID lab.abc; Lymphocytes 8 % (21-51); Monocytes 3 % (0-10); Neutrophil 84 % (42-75); Platelet Adequacy Comment Platelets Decreased; Smudge Cells 14.9 %; Total Cell Count 101
[2023-03-24] MEDS: Levothyroxine Sodium 125 MCG TAB PO SCH (06:09)
[2023-03-24 07:04] LABS: Anion Gap 8 mmol/L (10-20)
[2023-03-24] MEDS: Heparin 5,000 UNITS/ML VIAL SC SCH ×2 (08:22→15:51)
[2023-03-24] MEDS: Aspirin 81 mg Enteric Coated Tablet PO SCH (08:22)
[2023-03-24] MEDS: FLUoxetine HCl 20 MG CAP PO SCH (08:22)
[2023-03-24] MEDS: levETIRAcetam 500 MG/5 ML VIAL SLOW IVP SCH ×2 (08:23→20:53)
[2023-03-24] MEDS: Insulin Glargine 30 UNITS/0.3 ML VIAL SC SCH (08:23)
[2023-03-24] MEDS: Pantoprazole 40 MG VIAL IVP SCH (08:25)
[2023-03-24] MEDS: Polyethylene Glycol 3350 17 GM Packet PO SCH (08:25)
[2023-03-24] MEDS: Senokot S 8.6-50 MG TAB PO SCH (08:25)
[2023-03-24] MEDS ORDERED: Magnesium 2 GM/50 ML(in water) 2 GM in Premix Bag 1 BAG IVPB SCH (12:30)
[2023-03-24] MEDS ORDERED: Potassium Chloride 20 MEQ in Premix Bag 1 BAG IVPB SCH (12:45)
[2023-03-24] MEDS ORDERED: LevoFLOXacin 750 mg/D5W 750 MG in Premix Bag 1 BAG IVPB SCH (14:00)
[2023-03-24] MEDS: Cefepime 2 GM in Sodium Chloride 0.9% 100 ML IVPB SCH (16:39)
[2023-03-24] MEDS: Morphine 2 MG/ML VIAL SLOW IVP PRN ×2 (16:43→21:26)
[2023-03-24 20:10] LABS: Vancomycin, Random 12.7 ug/mL (See Comment)
[2023-03-24] MEDS: Atorvastatin Calcium 40 MG TAB PO SCH (20:52)
[2023-03-24] MEDS: Donepezil HCl 10 MG TAB PO SCH (20:52)
[2023-03-24] MEDS ORDERED: Vancomycin 1 GM in Premix Bag 1 BAG IVPB SCH (23:59)
[2023-03-25] MEDS: Cefepime 2 GM in Sodium Chloride 0.9% 100 ML IVPB SCH ×2 (02:29→14:47)
[2023-03-25] MEDS: Morphine 2 MG/ML VIAL SLOW IVP PRN ×2 (02:29→09:03)
[2023-03-25] MEDS: Levothyroxine Sodium 125 MCG TAB PO SCH (05:00)
[2023-03-25 05:23] LABS: #Eosinphils 0.2 thou/uL (0.0-0.7); #Neutrophils 7.6 thou/uL (1.40-6.50); %Basophils 0.3 % (0.0-1.0); %Lymphocytes 11.1 % (21.0-51.0); %Monocytes 9.5 % (0.0-10.0); %Neutrophils 75.6 % (42.0-75.0); Hematocrit 30.1 % (36.0-47.0); Hemoglobin 9.9 g/dL (12.0-16.0); Mean Corpuscular HGB CONC 32.9 g/dL (32.0-36.0); Mean Corpuscular Hemoglobin 30.2 pg (27.0-31.0); Mean Corpuscular Volume 91.8 fl (78.0-98.0); Mean Platelet Volume 11.5 fL (7.4-10.4); RBC Distribution Width 15.6 % (11.5-14.5); Red Blood Cell (RBC) Count 3.28 mill/uL (4.20-5.40); White Blood Cell (WBC) Count 10.1 10x3/uL (4.8-10.8)
[2023-03-25 05:49] LABS: Platelet Count 127 10x3/uL (130-400)
[2023-03-25 05:53] LABS: Anion Gap 10 mmol/L (10-20); BUN (Urea Nitrogen) 16 mg/dL (9.8-20.1); Calc. Creatinine Clearance 95 mL/min (70-130); Calcium 8.6 mg/dL (7.8-10.44); Carbon Dioxide 25 mmol/L (23-31); Chloride 110 mmol/L (98-107); Estimated GFR 92; Glucose 109 mg/dL (80-115); Magnesium 1.9 mg/dL (1.6-2.6); Potassium 3.7 mmol/L (3.5-5.1); Sodium 141 mmol/L (136-145)
[2023-03-25 07:54] VITALS: BMI 30.6
[2023-03-25] MEDS: Aspirin 81 mg Enteric Coated Tablet PO SCH (09:01)
[2023-03-25] MEDS: Senokot S 8.6-50 MG TAB PO SCH (09:01)
[2023-03-25] MEDS: Polyethylene Glycol 3350 17 GM Packet PO SCH (09:01)
[2023-03-25] MEDS: levETIRAcetam 500 MG/5 ML VIAL SLOW IVP SCH (09:02)
[2023-03-25] MEDS: Pantoprazole 40 MG VIAL IVP SCH (09:02)
[2023-03-25] MEDS: FLUoxetine HCl 20 MG CAP PO SCH (09:02)
[2023-03-25 12:58] VITALS: TEMP 97.6
[2023-03-25] MEDS ORDERED: LevoFLOXacin 750 mg/D5W 750 MG in Premix Bag 1 BAG IVPB SCH (15:00)
[2023-03-25 17:38] VITALS: BP 115/80
[2023-03-28 11:23] LABS: CO2 Tension 24.4 mmHg (35.0-45.0)
== END 2023-03-25 17:58 | disposition hospice, inpatient (51) | DRG 871 ==
LOC: ERS 13:52 → ERHOLD 16:07 → 2SE 18:10 → IMCU/EMU 18:14 → CCU 18:55 → T4-B 03-24 13:47
PROVIDERS: ADMIT Family Medicine; ATTEND Family Medicine
PROC: 4A133R1 Monitoring of Arterial Saturation, Peripheral, Percutaneous Approach (ICD-10-PCS; 2023-03-20)
PROC: 3E03329 Introduction of Other Anti-infective into Peripheral Vein, Percutaneous Approach (ICD-10-PCS; 2023-03-20)
PROC: 3E033XZ Introduction of Vasopressor into Peripheral Vein, Percutaneous Approach (ICD-10-PCS; 2023-03-20)
PROC: 0BH17EZ Insertion of Endotracheal Airway into Trachea, Via Natural or Artificial Opening (ICD-10-PCS; 2023-03-20)
PROC: 5A1945Z Respiratory Ventilation, 24-96 Consecutive Hours (ICD-10-PCS; 2023-03-20)
PROC: 02HV33Z Insertion of Infusion Device into Superior Vena Cava, Percutaneous Approach (ICD-10-PCS; principal; 2023-03-21)
PROC: B548ZZA Ultrasonography of Superior Vena Cava, Guidance (ICD-10-PCS; 2023-03-21)
DX: A41.9 Sepsis, unspecified organism (principal); G93.41 Metabolic encephalopathy; J18.9 Pneumonia, unspecified organism; R65.21 Severe sepsis with septic shock; J96.01 Acute respiratory failure with hypoxia; J69.0 Pneumonitis due to inhalation of food and vomit; K72.00 Acute and subacute hepatic failure without coma; N17.9 Acute kidney failure, unspecified; E87.20 Acidosis, unspecified; N12 Tubulo-interstitial nephritis, not specified as acute or chronic; I24.89 Other forms of acute ischemic heart disease; F03.93 Unspecified dementia, unspecified severity, with mood disturbance; F03.94 Unspecified dementia, unspecified severity, with anxiety; Z66 Do not resuscitate; Z51.5 Encounter for palliative care; E78.5 Hyperlipidemia, unspecified; I48.91 Unspecified atrial fibrillation; F32.A Depression, unspecified; I25.10 Atherosclerotic heart disease of native coronary artery without angina pectoris; E03.9 Hypothyroidism, unspecified; I12.9 Hypertensive chronic kidney disease with stage 1 through stage 4 chronic kidney disease, or unspecified chronic kidney disease; D69.6 Thrombocytopenia, unspecified; N18.9 Chronic kidney disease, unspecified; E87.6 Hypokalemia; E83.42 Hypomagnesemia; E83.39 Other disorders of phosphorus metabolism; E11.22 Type 2 diabetes mellitus with diabetic chronic kidney disease; R53.81 Other malaise; D63.1 Anemia in chronic kidney disease; E88.09 Other disorders of plasma-protein metabolism, not elsewhere classified; Z88.8 Allergy status to other drugs, medicaments and biological substances; Z79.890 Hormone replacement therapy; Z79.899 Other long term (current) drug therapy; Z79.4 Long term (current) use of insulin; Z79.82 Long term (current) use of aspirin; Z95.5 Presence of coronary angioplasty implant and graft; Z90.710 Acquired absence of both cervix and uterus; Z87.891 Personal history of nicotine dependence; Z98.890 Other specified postprocedural states
CPT/HCPCS: 31500; 36415; 36416; 36600; 71045; 74176; 80048; 80053; 80076; 80202; 81001; 82533; 82607; 82805; 83605; 83735; 83880; 84100; 84145; 84484; 85025; 85049; 85300; 85362; 85379; 85384; 85610; 85730; 86140; 87040; 87081; 87086; 93005; 94002; 94003; 96365; 96367; 97139; C9113; J0692; J1644; J1815; J1953; J1956; J2272; J2704; J3010; J3370; J3370-JW; J3475; J3480; J3490; J7030; J7050; J7120; S0028